=== PATIENT | male | born 1970 | race Caucasian/White ===

== ENCOUNTER 2025-02-23 21:09 | Inpatient (IN) | payer BC, SELFPAY ==
[2025-02-23 16:06] VITALS: BP 129/70
[2025-02-23 16:17] LABS: Hematocrit 27.8 % (39.0-52.0); Hemoglobin 9.7 g/dL (13.0-18.0); Mean Corp Hgb Conc. 34.9 g/dL (33.0-37.0); Mean Corpuscular Volume 85.5 fL (80.0-94.0); Nucleated Red Blood Cells % 0 % (-); Platelet Count 142 10^3/uL (130-400); Red Cell Dist. Width 13.2 % (11.5-14.5)
[2025-02-23 16:37] LABS: ALT (SGPT) 20 U/L (0-50); AST (SGOT) 25 U/L (17-59); Albumin 3.9 g/dl (3.5-5.0); Alkaline Phosphatase 64 U/L (38-126); Blood Urea Nitrogen 28 mg/dl (9-20); Calcium 9.3 mg/dl (8.4-10.2); Carbon Dioxide 25 mmol/L (22-30); Chloride 109 mmol/L (98-107); Glucose 243 mg/dl (70-99); Potassium 4.4 mmol/L (3.5-5.1); Sodium 138 mmol/L (135-145); Total Protein 7.2 g/dl (6.3-8.2); eGFR > 60.00
--- NOTE | 2025-02-23 19:52 | ED.GENMED ---
History of Present Illness
General
Chief Complaint: Skin Problem
Source: patient, records and physician
Exam Limitations: none
Time Seen by Provider: 02/23/25 19:43
Nursing documentation reviewed up to this point in time: agreed with
History of Present Illness
History of Present Illness:
54-year-old female long-term independent diabetic wound on the base of his right foot chronic but also acute component malodorous had MRI in outpatient setting revealed osteomyelitis his automatic data processing planner Dr. Gomez referred him here for evaluation medical
management with plan for admission for OR tomorrow patient is had no fever no nausea vomiting, patient states had some swelling in his right leg,
Past History
Past History
ED Past Medical History: Asthma, IDDM and NIDDM
ED Past Surgical History: Orthopedic
Social History
Tobacco: Former smoker
Alcohol: Occasional
Drug: None
Personal:
Living: with family
Employment: Employed
Family History
Family History: Other
Review of Systems
Review of Systems
All Other Systems: Not applicable
Constitutional: Denies fever or fatigue
EENT: Reports no symptoms
Respiratory: Reports no symptoms
Cardiac: Reports no symptoms
ABD/GI: Reports no symptoms
: Reports no symptoms
Musculoskeletal: Reports muscle stiffness and edema
Neurological: Reports no symptoms
Endocrine: Reports no symptoms
Phy Exam
Physical Exam
Physical Exam:
Physical Exam
General: no apparent distress, not acutely ill
Neck: No jaundice
Heart: s1/s2 regular rate and rhythm, no murmur. equal radial pulses.
Lungs: no acute respiratory distress. clear bilaterally
Abdomen: Nontender
Neuro: alert and oriented. no focal neurological deficits
Skin: no rash
Psychiatric: well kept. interactive and cooperative
Extremities: Mild calf swelling on the right without cellulitic changes, malodorous half dollar size wound plantar surface of the right foot
Course
Orders/Labs/Results
Orders:
Orders
02/23/25 16:11
Complete Blood Count/With Diff Urgent
Comprehensive Metabolic Panel Urgent
02/23/25 19:54
US Periph Venous LOWER Ext RT Urgent
Comment:
Reason For Exam: Swelling
Abnormal Lab Results
02/23/25
16:11
RBC 3.25 L 10^6/uL
(4.70-6.10)
Hgb 9.7 L g/dL
(13.0-18.0)
Hct 27.8 L %
(39.0-52.0)
Absolute Neuts (auto) 6.6 H 10^3/uL
(1.4-6.5)
Absolute Monos (auto) 1.0 H 10^3/uL
(0.1-0.6)
Lymphocytes % 18.8 L %
(20.5-51.1)
Monocytes % 10.4 H %
(1.7-9.3)
Chloride 109 H mmol/L
(98-107)
BUN 28 H mg/dl
(9-20)
Glucose 243 H mg/dl
(70-99)
02/23/25 16:11
02/23/25 16:11
Vital Signs
Initial and Last Documented VS:
Initial Vital Signs
Temp Pulse Resp BP Pulse Ox
98.2 F 75 18 129/70 98
02/23/25 16:06 02/23/25 16:06 02/23/25 16:06 02/23/25 16:06 02/23/25 16:06
Last Documented Vital Signs
Temp Pulse Resp BP Pulse Ox
98.2 F 75 18 129/70 98
02/23/25 16:06 02/23/25 16:06 02/23/25 16:06 02/23/25 16:06 02/23/25 19:54
MDM/Problems Addressed
Differential Diagnosis Includes:
Osteomyelitis cellulitis DVT PVD
MDM/Problems Addressed:
Foot wound
Chronic conditions affecting care: DM
Acute Exacerbation and/or Progression of Chronic Illness: DM
*Radiology
Radiology exam reviewed: other (Report overtextof osteomyelitis from referring automatic data processing planner)
*Pulse Oximetry
SaO2: 98
Oxygen Mode of Delivery: Room air
Patient hypoxic: no
*Critical Care Note
Total Time (30-74mins, 75-104mins- exclusive of procedures): Not Applicable
Update Note
Update Note:
Reviewed with referring automatic data processing planner will admit to the medical team, hold antibiotics as he is stable without signs of sepsis or rapidly progressive wound
Patient does state he has some right lower extremity swelling will check venous Doppler
ED Attending Note
-
Portions of this chart may have been created with voice recognition software.� Occasional wrong word or��sound alike� substitutions may have occurred due to the inherent limitations of voice recognition software.
Discharge Plan
Departure
Patient Disposition: Admit
Date of Disposition: 02/23/25
Time of Disposition: 19:58
Admit to: Med/Surg
Presentation/result/management discussed w/ accepting MD/DO: Hospitalist
Patient with high blood pressure during this ER visit?: No
Condition: Fair
Discharge Problem:
Osteomyelitis, Diabetic foot infection, Cellulitis
Prescriptions:
No Action
albuterol sulfate 1 PUFF HFA aerosol inhaler
2 puff inhalation R Q4HPRN PRN (Reason: shortness of breath)
escitalopram oxalate 10 MG tablet
10 mg PO DAILY
ascorbic acid (vitamin C) [Vitamin C] 500 MG tablet
500 mg PO DAILY
omeprazole 20 MG capsule,delayed release(DR/EC)
20 mg PO DAILY
multivitamin with folic acid [Tab-A-Analy] 1 TABLET tablet
1 tab PO DAILY
psyllium husk [Metamucil] 0.4 GM capsule
0.8 gm PO DAILY
montelukast 10 MG tablet
10 mg PO DAILY
budesonide-formoterol [Symbicort] 1 PUFF HFA aerosol inhaler
2 puff inhalation R BID
ibuprofen 200 MG tablet
800 mg PO Q4HPRN PRN (Reason: mild pain)
insulin glargine [Lantus Solostar U-100 Insulin] 300 UNITS/3 ML insulin pen
48 units SC HS
insulin aspart U-100 [Novolog FlexPen U-100 Insulin] 300 UNITS/3 ML insulin pen
0 units SC MEALS
levofloxacin 750 MG tablet
750 mg PO DAILY Qty: 15 0RF
doxycycline hyclate 100 MG capsule
100 mg PO Q12 Qty: 30 0RF
Interventions
Interventions:
*Risk Screen - Suicide Last Done: 02/23/25 16:07
*General Assessment Last Done: 02/23/25 16:07
*Neglect/Abuse Screening Last Done: 02/23/25 16:07
ED-Skin Assessment Last Done: 02/23/25 19:06
Discharge Date and Time
Print Language: NIGERIEN
--- NOTE | 2025-02-23 20:00 | W.PN.UPDATE ---
Update Note
Progress Note Update
This note serves as an addendum to the H&P by stock grader YOLANDA Lavinia GLOVER
HPI
54F Diabetic , Asthma, HX chronic wound on the base of right foot pw acute component malodorous wound
- OP MRI irevealed osteomyelitis
- some swelling in his right leg,
- Primary hair or beauty salon assistant Dr. Gomez referred to ER evaluation medical management with plan for admission for OR tomorrow
- no fever no nausea vomiting,
PHX
Vital Signs
Temp Pulse Resp BP Pulse Ox
98.2 F 75 18 129/70 98
02/23/25 16:06 02/23/25 16:06 02/23/25 16:06 02/23/25 16:06 02/23/25 19:54
PE
Gen: NAD, not toxic
HEENT: anicteric
Neck: supple
Lungs:CTA
Cor:RRR S1 S2
Abdomen: benign exam
API DEVELOPER: AAO3, NFND
Ext: Rt calf mild swelling. Malodorous half dollar size wound plantar surface of the Rt. foot
Psych: appropriate
Relevant data
02/23/25
16:11
WBC 9.6
Hgb 9.7 L
Plt Count 142
Chloride 109 H
Carbon Dioxide 25
BUN 28 H
Creatinine 1.2
eGFR > 60.00
Glucose 243 H
ASSESSMENT & PLAN
Pending Rx reconciliation
Diabetic neuropathic Rt foot ulcers ( 1 chronic 1 acute )
OSH MRI i( [facility]) suggest OM of heads of 3rd and 5th MTH
- sent in by Primary podiatry surgeon Dr. Gomez
- on [employer] SAL[employer] ASSOCIATE PO Doxycycline and PO LVQ
- NPO after MN
- Hold of ABx for now in view of stable VSS
- Plan for OR afternoon per Lay Midwife surgeon
- ID consult
IDDM with peripheral neuropathy
- add ISS low
- Reduce Lantus 50% of [employer] SALES ASSOCIATE dose in view of NPO after MN
- add ISS low
HX Asthma
- c/w all OP Meds
Depression
- on escitalopram
DVT Px: SQH
Full code
IP MS
--- NOTE | 2025-02-23 20:02 | HPS.HSE ---
Family Physician
-
Family Physician:
Chief Complaint
-
Right plantar foot wound x 1 year, right fifth metatarsal wound x 1.5 weeks
History of Present Illness
54-year-old diabetic male complaining of a diabetic wound on the base of his right foot that has been chronic but also acute with malodorous smell. He had an outpatient MRI completed at [facility] which showed osteomyelitis of the fifth
metatarsal and third metatarsal heads. He was seen by his highway maintainer Dr. Gomez who referred him here for evaluation and management with plan for OR in the a.m. He does report some swelling to his right lower extremity he denies fever, chills,
chest pain, palpitations, cough, shortness of breath, abdominal pain, nausea, vomiting, diarrhea, urinary symptoms. He has past medical history of asthma, DM 2 Dx age 29, severe diabetic neuropathy from feet to knees, diabetic retinopathy,
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
Medical History
Past Medical History
Past Medical History: Reports Other
Additional Past Medical History:
asthma�mild
DM 2 Dx age 29
severe diabetic neuropathy from feet to knees
diabetic retinopathy
osteomyelitis left foot with removal fifth metatarsal
born with horseshoe kidney
former smoker,
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
class I obesity
Past Surgical History: Reports Other
Additional Past Surgical History:
Left foot fifth metatarsal removal due to osteomyelitis/DM 2
Vasectomy
Appendectomy
Social History
Tobacco: Former Smoker (1 to 2 pack a day x 30 years quit 3 years ago)
Alcohol: Occasional (Drinks 4 beers a week was drinking daily 15 beers a day x 15 years until September 03, 2024)
Drug: None
Personal:
Living: Alone
Employment: Employed
Family History
Family History: Not pertinent
Allergies / Home Medications
Allergies reflects when Allergies were last updated in [facility].
Home Medications with original date entered in [facility]
Allergy/Medication List:
Allergies
Allergy/AdvReac Type Severity Reaction Status Date / Time
No Known Allergies Allergy Verified 02/23/25 16:07
Home Medications
albuterol sulfate 90 mcg/actuation aerosol inhaler 2 puff inhalation R Q4HPRN PRN shortness of breath 12/28/17
montelukast 10 mg tablet 10 mg PO DAILY Allergies 03/17/21
insulin aspart U-100 100 unit/mL (3 mL) subcutaneous pen (Novolog FlexPen U-100 Insulin aspart) 10 - 15 units SC MEALS sliding scale 06/08/21
insulin glargine 100 unit/mL (3 mL) subcutaneous pen (Lantus Solostar U-100 Insulin) 45 units SC HS Diabetes 06/08/21
citalopram 40 mg tablet 40 mg PO DAILY 02/23/25
fenofibrate 48 mg PO DAILY 02/23/25
lisinopril 30 mg PO DAILY 02/23/25
Review of Systems
-
History Source: Patient
A 12 point ROS was completed and negative except as noted: Yes
Constitutional: Denies Fever or Fatigue
EENT: Denies Sore Throat or Runny Nose
Respiratory: Denies Cough or Trouble Breathing
Cardiac: Denies Chest Pain, Diaphoresis, Palpitations or Syncope
Abdomen/GI: Denies Abdominal Pain, Nausea, Vomiting, Diarrhea, Constipated or Bloody Stools
: Denies Dysuria, Frequency, Flank Pain, Incontinence or Difficulty Voiding
Musculoskeletal: Reports Joint Pain (Right lateral fifth metatarsal open wound, chronic open wound plantar aspect of foot below third metatarsal, swelling to right lower extremity with erythema)
Skin: Denies Itching or Rash
Neurological: Denies Dizzy, Headache or Weakness
Endocrine: Reports No Symptoms
Hematologic/Lymphatic: Reports No Symptoms
Psych: Reports Calm
Physical Exam
Vital Signs
Vital Signs
Temp Pulse Resp BP Pulse Ox
98.2 F 75 18 129/70 98
02/23/25 16:06 02/23/25 16:06 02/23/25 16:06 02/23/25 16:06 02/23/25 19:54
Physical Exam
General: Comfortable and Conversant; No Fever or Chills
HEENT: NormoCephalic, Anicteric, Moist mucous membranes, PERRLA, Eckley Conjunctivae and No Ptosis
Respiratory: Clear; No Wheezes, Rales or Rhonchi
Cardiac: S1/S2 and Regular Rhythm; No Murmur, Rub, Gallop or Peripheral Edema
GI: Soft, Non Distended, Normal Bowel Sounds and No Hepatosplenomegaly
Rectal: Deferred by Provider
Genito-urinary: Deferred by me
Musculoskeletal: No Clubbing, No Cyanosis and Edema, Right Lower Extremity (Right lateral fifth metatarsal open wound, chronic open wound plantar aspect of foot below third metatarsal, swelling to right lower extremity with erythema); No Edema, Left
Upper Extremity, Edema, Right Upper Extremity or Edema, Left Lower Extremity
Skin: Warm and Dry; No Rash
Neuro: AO x 3, No Motor Deficits, Nonfocal/grossly intact, Cranial Nerves Intact and No Sensory Deficits; No DTR's Intact & Symmetrical, Slurred Speech, Facial Droop, Tremors or Sedated
Psych: Calm
Laboratory Results
-
02/23/25 16:11
02/23/25 16:11
Laboratory Results
Total Bilirubin 0.6 mg/dl (0.2-1.3) 02/23/25 16:11
AST 25 U/L (17-59) 02/23/25 16:11
ALT 20 U/L (0-50) 02/23/25 16:11
Alkaline Phosphatase 64 U/L (38-126) 02/23/25 16:11
Impression/Plan
-
Impression/plan:
Admit to MedSurg
#Right foot osteomyelitis 3rd/5th metatarsal heads/open hold to right plantar foot below third metatarsal x 1 year
#Right leg cellulitis
-#s/p amputation left fifth metatarsal due to osteomyelitis
- Obtain MRI from [facility]
- N.p.o. for OR in the a.m. by Dr. Gomez podiatry
-consult podiatry
-Hold antibiotics for biopsy in OR
- Consult PT/OT
#Anemia�normocytic
Hgb 9.7, MCV 85.5
Check iron panel, B12, folate
#Asthma�mild-no acute exacerbation
Continue Singulair and albuterol as needed
#DM 2 Dx age 29
#Severe diabetic neuropathy from feet to knees
-Accu-Cheks with SSI HIGH, check HgbA1c
- Continue Lantus 23 units at bedtime(regular dose 45 units at bedtime)
-Patient typically takes 10 to 15 units of NovoLog with meals will have sliding scale high for now
-
#Diabetic retinopathy
Wears glasses does follow yearly with high lighter
#Born with horseshoe kidney
-Advised patient he should follow with nephrology given his uncontrolled blood sugars
- Follow BMP
#Former smoker
- 29-year 1 to 2 pack/day quit 8 years ago
#Former alcoholic 15 years daily 15 pack stopped September 03, 2024
#Class I obesity
- Weight loss recommended discussed with patient GLP-1's but not until LFTs and outpatient liver ultrasound given his history of alcoholism
DVT prophylaxis
SCDs left leg
Full code
[2025-02-23 20:18] VITALS: BP 128/74
[2025-02-23 21:34] LABS: Iron 53 ug/dl (49-181); Total Iron Binding Capacity 274 ug/dl (261-462)
[2025-02-23 21:40] LABS: Ferritin 296.0 ng/ml (17.9-464.0)
[2025-02-23 22:11] LABS: Folate 9.4 ng/ml (2.76-20); Vitamin B12 292 pg/ml (239-931)
[2025-02-23 22:26] VITALS: BMI 31.9
[2025-02-23 22:27] VITALS: BP 167/86
--- NOTE | 2025-02-23 23:40 | PTCARENOTE ---
Received patient from ED at approx 2225. Patient ambulated from stretcher to bed. AAA x 3. Call rubio in reach.
[2025-02-23 23:57] LABS: Glucose - Point of Care 324 mg/dl (70-99)
[2025-02-24] VITALS (9 sets, daily range): BP systolic 104–153; BP diastolic 61–80
[2025-02-24] MEDS: LANTUS 0.24 UNITS SC ×2 (00:27→21:53)
[2025-02-24 05:59] LABS: Glucose - Point of Care 218 mg/dl (70-99)
[2025-02-24] MEDS: NOVOLOG FLEXPEN-HIGH RESISTANCE 4 UNITS SC (06:03)
--- NOTE | 2025-02-24 07:27 | W.PN.UPDATE ---
Update Note
Progress Note Update
pt seen, well known to practice
has mri, osteo 5th met head and 3rd met heaad
keep npo for OR later;
consent signed
will debride ulcers/5th met resection and bx of 3rd
anticipate 6 weeks iv abx upon dc
will also need wound vac ( most likely) upon dc
sx later today
full consult to be dictated
--- NOTE | 2025-02-24 07:33 | W.PN.HOSP.TC ---
Today's Communication/Plan
-
Debridement/resection of metatarsals in OR
Start antibiotics
Assessment / Plan
Assessment / Plan
Assessment
54-year-old male with past medical history of IDDM, diabetic neuropathy/retinopathy, horseshoe kidney, asthma, former smoker and alcoholic presented to the ER with chronic right foot ulcers.
Plan
#Diabetic foot ulcers
#Osteomyelitis right 3rd/5th metatarsals
Technical Manager [employer] on board
Plan for debridement, metatarsal resection and biopsy in the OR today.
Patient not septic at presentation
Will start IV Zosyn and vancomycin after the procedure
Will de-escalate after cultures/sensitivities reported
N.p.o. for the procedure
May need wound VAC/IV antibiotics at discharge
#IDDM
#Diabetic neuropathy
#Diabetic retinopathy
Patient on home Lantus 45, aspart 10/15 units
Since patient is n.p.o., Lantus reduced to 24
Continue SSI
Check HbA1c
#Asthma
Not in acute exacerbation
Continue Singulair
Continue albuterol as needed
#Horseshoe kidney
Follow-up with nephrology as outpatient
Check BMP
#DVT prophylaxis�SCDs
Full code
Anticipated Discharge: 24 - 48 hours
Subjective/Interval History
-
Date of Service: February 24, 2025
Patient does not report any acute overnight events, no fever/chills.
Objective Data
-
Labs:
Laboratory Results
02/24/25
07:08
WBC Pending
Hgb Pending
Hct Pending
Plt Count Pending
Sodium Pending
Potassium Pending
Chloride Pending
Carbon Dioxide Pending
BUN Pending
Creatinine Pending
Glucose Pending
Calcium Pending
Total Bilirubin Pending
AST Pending
ALT Pending
Alkaline Phosphatase Pending
Vital Signs:
Vital Signs
Temp Pulse Resp BP Pulse Ox
98.4 F 56 16 127/78 98
02/23/25 22:27 02/24/25 03:20 02/24/25 00:23 02/24/25 03:20 02/24/25 00:23
I&O
02/23/25 02/24/25 02/25/25
06:59 06:59 06:59
Intake Total 240 / 240
Balance 240 / 240
Review of Systems
-
All other systems: Reviewed and negative
Physical Exam
-
General: Well Developed, Well Nourished and No Apparent Distress
HEENT: Normocephalic and Atraumatic
Respiratory: Clear to Auscultation
Cardiac: Regular Rhythm and S1/S2
GI: Soft, Nontender, Nondistended and Normal Bowel Sounds
Skin: Warm, Dry and Ulcers (Ulcer on the lateral aspect of right foot, 3X 3 cm, ulcer on the plantar aspect of the right foot 1X 2 cm)
Neuro: Awake, Alert, Oriented and AO x 3
[2025-02-24 07:41] LABS: Hematocrit 30.7 % (39.0-52.0); Hemoglobin 10.3 g/dL (13.0-18.0); Mean Corp Hgb Conc. 33.6 g/dL (33.0-37.0); Mean Corpuscular Volume 87.0 fL (80.0-94.0); Nucleated Red Blood Cells % 0 % (-); Platelet Count 171 10^3/uL (130-400); Red Cell Dist. Width 13.2 % (11.5-14.5)
[2025-02-24 08:09] LABS: ALT (SGPT) 21 U/L (0-50); AST (SGOT) 23 U/L (17-59); Albumin 4.0 g/dl (3.5-5.0); Alkaline Phosphatase 61 U/L (38-126); Blood Urea Nitrogen 22 mg/dl (9-20); Calcium 9.4 mg/dl (8.4-10.2); Carbon Dioxide 27 mmol/L (22-30); Chloride 106 mmol/L (98-107); Estimated Creatinine Clearance 124 ml/min; Glucose 173 mg/dl (70-99); Magnesium 2.0 mg/dl (1.6-2.3); Potassium 4.1 mmol/L (3.5-5.1); Sodium 139 mmol/L (135-145); Total Protein 7.5 g/dl (6.3-8.2); eGFR > 60.00
[2025-02-24 08:58] LABS: Glycohemoglobin (HgbA1c) 7.9 % (4.0-5.6)
[2025-02-24] MEDS: ZESTRIL 30 MG PO (09:22)
[2025-02-24] MEDS: CELEXA 40 MG PO (09:22)
[2025-02-24] MEDS: TRICOR 48 MG PO (09:23)
[2025-02-24] MEDS: SINGULAIR 10 MG PO (09:30)
--- NOTE | 2025-02-24 11:34 | CON.ID ---
Consultation
-
Date/Time Consultation Requested: February 24, 2025 0834
Date/Time Consultation Performed: 02/24/2025 1000
Requesting Provider: Dr. Veronica V
Performing Provider: Dr. Radha Oviedo
Reason for Consultation: Diabetic foot infection
Chief Complaint / Past History
Chief Complaint
Worsening R foot wounds
History of Present Illness
54-year-old male with history of uncontrolled diabetes mellitus, neuropathy who presented to the hospital February 23 under the instruction of his siebel developer due to osteomyelitis of the R foot. He reports he has chronic wound on the bottom of his
plantar foot. However 2 weeks ago he developed a new wound over the lateral side of right foot. Wound was nonhealing. It turned dark in color with odor. His siebel developer ordered MRI; outside MRI showed osteomyelitis of the fifth metatarsal as well
as the third metatarsal. He is planned for surgery today. Patient reports no fevers or chills. No other complaints.
Past History
Additional Past Medical History:
Diabetes mellitus
Neuropathy
Asthma
Hypertension
HLD
depression
Horseshoe kidney
History of left fifth metatarsal resection due to osteomyelitis
Appendectomy
Vasectomy
Allergy History:
No Known Allergies Allergy (Verified 02/23/25 16:07)
Medications Reviewed: Yes
Current Antibiotics:
None
Social History
Tobacco: Former Smoker
Alcohol: Former
Drug: None
Personal:
Employment: Employed
Family History
Family History: Not Pertinent
Review of Systems
Review of Systems
General: Negative Fever, Chills or Change in Appetite
HEENT: Negative Sinus Problems or Headache
Cardiovascular: Negative Chest Pain
Respiratory: Negative Dyspnea or Cough
Gasteroenterology: Negative Nausea, Vomiting or Diarrhea
Genital / Urological: Negative Dysuria or Flank Pain
Endocrine: Negative Weakness
All systems: All other systems were reviewed and were negative
Vital Signs
Temp Pulse Resp BP Pulse Ox
98.2 F 77 16 149/80 99
02/24/25 08:39 02/24/25 08:39 02/24/25 08:39 02/24/25 08:39 02/24/25 08:39
Physical Exam
Physical Exam
Constitutional: No Acute Distress and Comfortable
Eyes: No Conjunctival Hemorrhage and Sclera Anicteric
Cardiovascular: Regular Rate and S1/S2
Pulmonary: Clear
Gastrointestinal: Soft, Non Tender, Non Distended and Normal Bowel Sounds
Genito-Urinary: Negative CVA Tenderness
Extremities: Edema (Right lower extremity and foot/warm) and Pulses (Palpable pulses bilateral dorsal pedalis)
Wound: Other (Right foot: Round ulcer plantar forefoot between 3rd and 4th metatarsal with pale tissue at the base; fifth metatarsal is soft necrotic wound with malodor)
Neurological: AO x 3
Lab / Diagnostic Study Results
02/24/25 07:08
02/24/25 07:08
Abs Immat Gran (auto) 0.0 10^3/uL (0-0.05) 02/24/25 07:08
Absolute Neuts (auto) 5.8 10^3/uL (1.4-6.5) 02/24/25 07:08
Absolute Lymphs (auto) 1.5 10^3/uL (1.2-3.4) 02/24/25 07:08
Absolute Monos (auto) 0.9 10^3/uL (0.1-0.6) H 02/24/25 07:08
Absolute Basos (auto) 0.0 10^3/uL (0-0.2) 02/24/25 07:08
Immature Gran % 0.4 % (0-0.5) 02/24/25 07:08
Neutrophils % 69.4 % (42.2-75.2) 02/24/25 07:08
Lymphocytes % 17.8 % (20.5-51.1) L 02/24/25 07:08
Monocytes % 10.2 % (1.7-9.3) H 02/24/25 07:08
Eosinophils % 1.8 % (0-6) 02/24/25 07:08
Basophils % 0.4 % (0-2) 02/24/25 07:08
Microbiology Results
Micro:
02/24/25 03:48 MRSA Screen - Pending
Other-Please specify - Other
02/2525 Foot Xray: linear collection of gas gas projecting over soft tissues of plantar aspect of distal forefoot. This presumably represents gas within patient's known foot ulcers.
Assessment / Plan
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
# Osteomyelitis of the right third metatarsal
# Poorly controlled diabetes mellitus
- To OR today for I&D, resection, cultures, pathology
- Start Zosyn
- Will de-escalate antibiotic once or cultures available. Anticipate 6 weeks of IV antibiotic.
- Discussed importance of tight glucose control.
[2025-02-24 11:58] LABS: Glucose - Point of Care 130 mg/dl (70-99)
--- NOTE | 2025-02-24 12:27 | CM ---
CM reviewed chart, patient seen bedside, initial assessment completed. Patient resides with his significant other in a one level home, 2-3 steps to enter. Patient reports having a commode, walker, scooter, 'peg leg', and wheelchair at home. Patient
reports having VN in the past, has had home IV antibiotics. unsure agency. Patient denies SNF history. Patient confirms PCP Carmen Agee, pharmacy [facility], confirms prescription coverage. Patient reports anxiety over the unknown regarding
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 Patient for OR today, will follow for all discharge planning needs.
Plan; home with fiance, watch for needs upon discharge (may need wound vac per chart)
[2025-02-24] MEDS: ZOSYN 100 IV (14:09)
[2025-02-24 18:10] LABS: Glucose - Point of Care 100 mg/dl (70-99)
--- NOTE | 2025-02-24 20:25 | W.PN.UPDATE ---
Update Note
Progress Note Update
pt seen in RR
no pain
dressing cdi
cft intact
a/p s/p 5th mpj resection, 3rd met bone bx
excisional debridement of ulcer right---stable
bone sent to path, if 3rd met + osteo, need 6 weeks abx
pt will need wound vac placement, possible tomorrow, pending bleeding
will follow
cont abx
[2025-02-24 20:27] LABS: Glucose - Point of Care 106 mg/dl (70-99)
[2025-02-24] MEDS: ZOSYN IV (20:41)
[2025-02-24 21:46] LABS: Glucose - Point of Care 107 mg/dl (70-99)
--- NOTE | 2025-02-24 23:17 | PTCARENOTE ---
Patient arrived back to unit from PACU around 21:00. AAOx3. Denies pain at current time. Vitals stable. Right foot wrapped with dressing and archie wrap. patient able to wiggle toes and feel RN toughing toes. RLE warm with + cap refill. Pop pulse + .
Patient educated senior national account manager ing fro assist with toileting and given urinal. Call rubio within reach.
[2025-02-25] VITALS (8 sets, daily range): BP systolic 113–161; BP diastolic 64–83; PULSE 93; O2SAT 96
[2025-02-25] MEDS: ZOSYN 100 IV ×4 (01:18→19:50)
--- NOTE | 2025-02-25 07:08 | W.PN.HOSP.TC ---
Today's Communication/Plan
-
Continue IV Zosyn
Wound VAC
Assessment / Plan
Assessment / Plan
Assessment
54-year-old male with past medical history of IDDM, diabetic neuropathy/retinopathy, horseshoe kidney, asthma, former smoker and alcoholic presented to the ER with chronic right foot ulcers.
Plan
#Diabetic foot ulcers
#Osteomyelitis right 3rd/5th metatarsals
#S/p right fifth MP joint resection/ excisional debridement/third metatarsal biopsy
POD #1
AFVSS
White count at 12.5
Continue IV Zosyn
Wound cultures/sensitivities pending, will de-escalate after reported
Wound VAC today
Third metatarsal biopsy sent, if osteo myelitis +, may require IV antibiotics for 6 weeks
ID on board�appreciate recs, IV antibiotics at discharge
Nonweightbearing right foot
Possible discharge tomorrow
#IDDM
#Diabetic neuropathy
#Diabetic retinopathy
Patient on carb controlled diet
Lantus 30, aspart 10
Continue SSI
[id number]-5.9
#Asthma
Not in acute exacerbation
Continue Singulair
Continue albuterol as needed
#Horseshoe kidney
Follow-up with nephrology as outpatient
Check BMP
#DVT prophylaxis�Lovenox
Full code
Anticipated Discharge: 24 - 48 hours
Subjective/Interval History
-
Date of Service: February 25, 2025
No acute overnight issues.
Objective Data
-
Labs:
Laboratory Results
02/25/25
06:00
WBC Pending
Hgb Pending
Hct Pending
Plt Count Pending
Sodium Pending
Potassium Pending
Chloride Pending
Carbon Dioxide Pending
BUN Pending
Creatinine Pending
Glucose Pending
Calcium Pending
Total Bilirubin Pending
AST Pending
ALT Pending
Alkaline Phosphatase Pending
Vital Signs:
Vital Signs
Temp Pulse Resp BP Pulse Ox
99.2 F 83 18 143/68 96
02/25/25 03:00 02/25/25 03:00 02/25/25 03:00 02/25/25 03:00 02/25/25 03:00
I&O
02/24/25 02/25/25 02/26/25
06:59 06:59 06:59
Intake Total 240 / 240 680 / 680
Balance 240 / 240 680 / 680
Physical Exam
-
General: Well Developed, Well Nourished and No Apparent Distress
HEENT: Normocephalic and Atraumatic
Respiratory: Clear to Auscultation
Cardiac: Regular Rhythm and S1/S2
GI: Soft, Nontender, Nondistended and Normal Bowel Sounds
Musculoskeletal: Other (Right foot covered with dressing and Dash wrap, neurovasculature intact, appears well-perfused)
Skin: Warm and Dry
Neuro: Awake, Alert, Oriented and AO x 3
Psych: Calm
--- NOTE | 2025-02-25 07:25 | W.PN.POD ---
Today's Communication
Today's Communication
s/p 5th mpj resection right foot/excisional debridememt to bone right foot/3rd met bx---stable
no acute soi
tissue healthy
will order vac for today
pt will need betadine impregnated gauze on sutures prior to application of vac, this is done to decrease maceration
vac should be placed lateral wound, bactroban to plantar wound
pt will most likely need iv abx upon dc
will need vna
anticipate dc per pod tomorrow pending C&S
nwb right foot
Subjective
Chief Complaint
pt seen for fu surgery
no pain
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
dressing cdi
Subjective
vasc intact
derm lateral foot with large wound, clean, no odor, no pus
granular tissue
sutures intact
plantar wound stable, superficial, granular
no acute soi
path and VV&S pending
Objective
Temp Pulse Resp BP Pulse Ox
99.2 F 83 18 143/68 96
02/25/25 03:00 02/25/25 03:00 02/25/25 03:00 02/25/25 03:00 02/25/25 03:00
Vital Signs and Lab results were reviewed.
[2025-02-25 08:19] LABS: Hematocrit 32.8 % (39.0-52.0); Hemoglobin 11.5 g/dL (13.0-18.0); Mean Corp Hgb Conc. 35.1 g/dL (33.0-37.0); Mean Corpuscular Volume 83.9 fL (80.0-94.0); Nucleated Red Blood Cells % 0 % (-); Platelet Count 189 10^3/uL (130-400); Red Cell Dist. Width 12.7 % (11.5-14.5)
[2025-02-25 09:02] LABS: ALT (SGPT) 21 U/L (0-50); AST (SGOT) 25 U/L (17-59); Albumin 4.2 g/dl (3.5-5.0); Alkaline Phosphatase 77 U/L (38-126); Blood Urea Nitrogen 20 mg/dl (9-20); Calcium 9.5 mg/dl (8.4-10.2); Carbon Dioxide 23 mmol/L (22-30); Chloride 106 mmol/L (98-107); Estimated Creatinine Clearance 111 ml/min; Glucose 164 mg/dl (70-99); Potassium 4.7 mmol/L (3.5-5.1); Sodium 137 mmol/L (135-145); Total Protein 7.8 g/dl (6.3-8.2); eGFR > 60.00
[2025-02-25] MEDS: ZESTRIL 30 MG PO (09:02)
[2025-02-25] MEDS: CELEXA 40 MG PO (09:02)
[2025-02-25] MEDS: SINGULAIR 10 MG PO (09:02)
[2025-02-25] MEDS: TRICOR 48 MG PO (09:03)
[2025-02-25 09:07] LABS: Glucose - Point of Care 141 mg/dl (70-99)
--- NOTE | 2025-02-25 10:38 | WOUNDNOTE ---
RIGHT PLANTAR FOOT
--- NOTE | 2025-02-25 10:41 | WOUNDNOTE ---
RIGHT LATERAL FOOT
--- NOTE | 2025-02-25 10:45 | WOUNDNOTE ---
[facility] RN note: Patient admitted with R diabetic foot infection and osteomyelitis.
See H&P for complete history.
PMH: ED Past Medical History: Asthma, IDDM and NIDDM
ED Past Surgical History: Orthopedic
Wound Location and type/assessment: Patient s/p R foot surgical I&D by Dr. Gomez wound vac ordered. Clarified wound orders with Dr. Gomez, vac to lateral aspect of foot, cover sutures with betadine and gauze to keep dry. Plantar foot with mupirocin
and dry dressing daily. Will update wound care orders and Fax PW to [facility] for home vac. For possible discharge tomorrow pending insurance approval of vac. Will update Solvent site of vac application, can use redivac available in wound office
when ready for discharge. Teaching done with patient regarding wound vac and dressing on plantar aspect. Patient confirmed his fiance can change plantar dressing daily, aware VN will do wound vac dressings. L foot and heel are intact. R heel intact.
Appetite: Good, encouraged protein in diet.
Pressure redistribution devices in place: On accumax, turns self and lifts legs, NWB R foot. Has darco shoe and confirmed has scooter at home.
Plan: Wound care done, vac applied as ordered by Dr. Gomez. Next vac change due Sunday and will change if still here. When discharged wound care nurse(Nan Thomas) can apply home vac and do further teaching with patient and fiance. Can
coordinate with Nan when discharge set. Updated care plan.
Note to case management of equipment requested for discharge: VN
Recommend follow up with Dr. Gomez.
--- NOTE | 2025-02-25 10:55 | W.PN.ID1 ---
Date of Service
Date of Service: February 25, 2025
Today's Communication
Await bone path.
Continue Zosyn.
Assessment / Plan
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
# Osteomyelitis of the right third metatarsal
# Poorly controlled diabetes mellitus
- 02/25 s/p 5th mpj resection, 3rd met bone bx, excisional debridement of ulcer right
- Await OR cx's and biopsy.
- If 3rd met bone bx + osteo, will need 6 weeks of IV abx.
- Continue Zosyn (d2) for now.
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
Diabetes mellitus
Neuropathy
Asthma
Hypertension
HLD
depression
Horseshoe kidney
History of left fifth metatarsal resection due to osteomyelitis
Appendectomy
Vasectomy
Chief Complaint
-: Other (foot osteo)
Subjective / Review of Systems
No pain.
Vital Signs / Physical Exam
Vital Signs
Vital Signs
Temp Pulse Resp BP Pulse Ox
99.2 F 95 17 161/82 96
02/25/25 07:25 02/25/25 07:25 02/25/25 07:25 02/25/25 07:25 02/25/25 07:25
Physical Exam
Constitutional: No Acute Distress
Cardiovascular: Regular Rate and S1/S2
Pulmonary: Clear
Gastrointestinal: Soft, Non Tender and Non Distended
Wound: Other (right foot dressing in place)
Neurological: AO x 3
Objective Data
Lab Data
Lab Results
02/25/25 07:43
02/25/25 07:43
Estimated Creat Clear 111 ml/min 02/25/25 07:43
Total Bilirubin 0.7 mg/dl (0.2-1.3) 02/25/25 07:43
AST 25 U/L (17-59) 02/25/25 07:43
ALT 21 U/L (0-50) 02/25/25 07:43
Alkaline Phosphatase 77 U/L (38-126) 02/25/25 07:43
Most recent labs reviewed.
Micro Results:
02/24/25 03:48 MRSA Screen - Final
Other-Please specify - Other No Methicillin Resistant Staphylococcus aureus isolated.
02/24/25 19:51 Anaerobic Culture - Pending
Wound-Superficial
02/24/25 19:51 Wound Culture - Pending
Foot - Right Gram Stain - Pending
02/24/25 19:51 Tissue Culture - Pending
Foot - Right Gram Stain - Pending
02/24/25 20:00 Tissue Culture - Pending
Foot - Right Gram Stain - Pending
02/24/25 20:00 Tissue Culture - Pending
Foot - Right Gram Stain - Pending
02/2525 Foot Xray: linear collection of gas gas projecting over soft tissues of plantar aspect of distal forefoot. This presumably represents gas within patient's known foot ulcers.
[2025-02-25 12:12] LABS: Glucose - Point of Care 264 mg/dl (70-99)
[2025-02-25] MEDS: NOVOLOG FLEXPEN-MODERATE RESISTANCE 5 UNITS SC ×2 (12:55→18:22)
--- NOTE | 2025-02-25 13:11 | CM ---
CM reviewed chart, patient with wound vac, will likely need 6 weeks IV antibiotics. Patient seen bedside with luna, aware of likely need for IV antibiotics, has worked with [facility] in the past. Patient unsure of VN agency worked with in the
past, per previous CM notes, no accepting VN agency at the time upon last discharge. Referral placed to [facility], will check for nursing availability in [facility]. Clinicals sent to [facility] to review patients benefits, patients reports last
time he had home antibiotics he had a different insurance, now current with [facility]. CM will continue to follow for all discharge planning needs.
Plan; home with new wound vac, likely IV antibiotics, referral to [facility], referral to [facility] for home infusion
[2025-02-25 17:05] LABS: Glucose - Point of Care 263 mg/dl (70-99)
[2025-02-25] MEDS: LOVENOX 40 MG SC (18:22)
[2025-02-25 21:16] LABS: Glucose - Point of Care 347 mg/dl (70-99)
[2025-02-25] MEDS: LANTUS 0.3 UNITS SC (21:42)
[2025-02-26] MEDS: ZOSYN 100 IV ×3 (01:30→14:15)
[2025-02-26 07:30] LABS: Glucose - Point of Care 163 mg/dl (70-99)
[2025-02-26 07:36] VITALS: BP 132/68
--- NOTE | 2025-02-26 07:36 | W.PN.HOSP.TC ---
Today's Communication/Plan
-
Continue wound VAC
Continue IV Zosyn
Assessment / Plan
Assessment / Plan
Assessment
54-year-old male with past medical history of IDDM, diabetic neuropathy/retinopathy, horseshoe kidney, asthma, former smoker and alcoholic presented to the ER with chronic right foot ulcers.
Plan
#Diabetic foot ulcers
#Osteomyelitis right 3rd/5th metatarsals
#S/p right fifth MP joint resection/ excisional debridement/third metatarsal biopsy
POD #2
AFVSS
Continue IV Zosyn�day 3
Wound cultures/sensitivities pending, will de-escalate after reported
Wound VAC in place, continue for today, will take off tomorrow
Third metatarsal biopsy sent, if osteo myelitis +, may require IV antibiotics for 6 weeks
ID on board�appreciate recs, IV antibiotics at discharge
Nonweightbearing right foot
Consulted case management, for arranging VN/VAC at home
Possible discharge tomorrow
#IDDM
#Diabetic neuropathy
#Diabetic retinopathy
Patient on carb controlled diet
Continue with home dose 45 Lantus/15 aspart
Continue SSI
[id number]
#Asthma
Not in acute exacerbation
Continue Singulair
Continue albuterol as needed
#Horseshoe kidney
Follow-up with nephrology as outpatient
Check BMP
#DVT prophylaxis�Lovenox
Full code
Anticipated Discharge: 24 - 48 hours
Subjective/Interval History
-
Date of Service: February 26, 2025
Patient does not report any pain.
Objective Data
-
Labs:
Laboratory Results
02/26/25
07:33
WBC Pending
Hgb Pending
Hct Pending
Plt Count Pending
Sodium Pending
Potassium Pending
Chloride Pending
Carbon Dioxide Pending
BUN Pending
Creatinine Pending
Glucose Pending
Calcium Pending
Total Bilirubin Pending
AST Pending
ALT Pending
Alkaline Phosphatase Pending
Vital Signs:
Vital Signs
Temp Pulse Resp BP Pulse Ox
98.4 F 81 20 137/75 97
02/25/25 22:59 02/25/25 22:59 02/25/25 22:59 02/25/25 22:59 02/25/25 22:59
I&O
02/25/25 02/26/25 02/27/25
06:59 06:59 06:59
Intake Total 680 / 680 880 / 880
Balance 680 / 680 880 / 880
Physical Exam
-
General: Well Developed and Well Nourished
HEENT: Normocephalic and Atraumatic
Respiratory: Clear to Auscultation
Cardiac: Regular Rhythm and S1/S2
GI: Soft, Nontender, Nondistended and Normal Bowel Sounds
Musculoskeletal: Other (Right foot covered with dressing and Dash wrap, neurovasculature intact, appears well-perfused)
Skin: Warm and Dry
Neuro: Awake, Alert, Oriented and AO x 3
[2025-02-26 07:46] LABS: Hematocrit 30.7 % (39.0-52.0); Hemoglobin 10.7 g/dL (13.0-18.0); Mean Corp Hgb Conc. 34.9 g/dL (33.0-37.0); Mean Corpuscular Volume 84.6 fL (80.0-94.0); Nucleated Red Blood Cells % 0 % (-); Platelet Count 181 10^3/uL (130-400); Red Cell Dist. Width 12.6 % (11.5-14.5)
--- NOTE | 2025-02-26 08:09 | W.PN.UPDATE ---
Update Note
Progress Note Update
pt seen at bedside
no c/o pain
cft intact to toes
vac in place
cult pending
a/p s/p 5th mpj resection and bone bx ---stable
awaiting cult
pt will need 6 weeks iv abx
will take off vac tomorrow, if healthy tissue..plan to dc tomorrow if vna/vac at home is organized'
appreciate all input, needs vac and abx for home
--- NOTE | 2025-02-26 09:06 | CM ---
Addendum entered by Joi Nicholas 02/26/25 17:20:
[facility] and [facility] home health referrals declined. Attending notified. May need to consider going to a SNF for care if insurance approves authorization
Addendum entered by Joi Nicholas 02/26/25 14:58:
Script for Antibiotic and clinicals faxed to Misty @ [facility]; fax # [phone]
Addendum entered by Joi Nicholas 02/26/25 14:08:
[facility] home health unable to accept patient.
Referrals sent to [facility] and [facility]'s [facility] via [facility]
Addendum entered by Joi Nicholas 02/26/25 10:55:
Met with patient at bedside; informed him of insurance coverage.
Per Infectious Disease physician, culture results to make optimal antibiotic decision is still pending
[facility] responded; decision to accept home referral pending is review of clinical information
Plan: Discharge to home with [facility]N
Addendum entered by Joi Nicholas 02/26/25 09:22:
Per Misty from [facility], patient's insurance covers 100% after $2000 Deductible has been met
Home Health/VN referral sent to [facility]
Original Note:
Home Health referrals to [facility] declined; both out of their service area
[2025-02-26] MEDS: NOVOLOG FLEXPEN-MODERATE RESISTANCE 1 UNITS SC ×2 (09:40→12:51)
[2025-02-26] MEDS: CELEXA 40 MG PO (09:46)
[2025-02-26] MEDS: ZESTRIL 30 MG PO (09:46)
[2025-02-26] MEDS: FLUSH (NSS) 1 FLUSH IV ×2 (09:46→14:13)
[2025-02-26] MEDS: TRICOR 48 MG PO (09:46)
[2025-02-26] MEDS: SINGULAIR 10 MG PO (09:47)
[2025-02-26 10:51] LABS: ALT (SGPT) 18 U/L (0-50); AST (SGOT) 19 U/L (17-59); Albumin 4.0 g/dl (3.5-5.0); Alkaline Phosphatase 61 U/L (38-126); Blood Urea Nitrogen 15 mg/dl (9-20); Calcium 9.3 mg/dl (8.4-10.2); Carbon Dioxide 26 mmol/L (22-30); Chloride 104 mmol/L (98-107); Estimated Creatinine Clearance 101 ml/min; Glucose 154 mg/dl (70-99); Potassium 4.3 mmol/L (3.5-5.1); Sodium 137 mmol/L (135-145); Total Protein 7.6 g/dl (6.3-8.2); eGFR > 60.00
[2025-02-26 11:08] LABS: Glucose - Point of Care 175 mg/dl (70-99)
--- NOTE | 2025-02-26 14:15 | W.PN.ID1 ---
Date of Service
Date of Service: February 26, 2025
Today's Communication
Will submit empiric cefepime 2g IV q8h through 04/07/25.
Assessment / Plan
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
# Osteomyelitis of the right third metatarsal
# Poorly controlled diabetes mellitus
- 02/25 s/p 5th mpj resection, 3rd met bone bx, excisional debridement of ulcer right
- Await OR cx's and biopsy.
- Will need 6 weeks of IV abx per Podiatry.
- Will submit empiric cefepime 2g IV q8h through 04/07/25.
If pt discharged prior to final cx data, I will arrange to change the abx outpatient.
- Infusion sheet submitted to community case manager.
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
Diabetes mellitus
Neuropathy
Asthma
Hypertension
HLD
depression
Horseshoe kidney
History of left fifth metatarsal resection due to osteomyelitis
Appendectomy
Vasectomy
Chief Complaint
-: Other (foot osteo)
Subjective / Review of Systems
No complaints.
Vital Signs / Physical Exam
Vital Signs
Vital Signs
Temp Pulse Resp BP Pulse Ox
98.1 F 80 17 132/68 98
02/26/25 07:36 02/26/25 07:36 02/26/25 07:36 02/26/25 07:36 02/26/25 07:36
Physical Exam
Constitutional: No Acute Distress
Cardiovascular: Regular Rate and S1/S2
Pulmonary: Clear
Gastrointestinal: Soft, Non Tender and Non Distended
Wound: Other (right foot dressing in place with wound vac)
Neurological: AO x 3
Objective Data
Lab Data
Lab Results
02/26/25 07:33
02/26/25 07:33
Estimated Creat Clear 101 ml/min 02/26/25 07:33
Total Bilirubin 0.9 mg/dl (0.2-1.3) 02/26/25 07:33
AST 19 U/L (17-59) 02/26/25 07:33
ALT 18 U/L (0-50) 02/26/25 07:33
Alkaline Phosphatase 61 U/L (38-126) 02/26/25 07:33
Most recent labs reviewed.
Micro Results:
02/24/25 19:51 Anaerobic Culture - Preliminary
Wound-Superficial Culture pending. Anaerobic cultures are examined after 3
days incubation. Additional information to follow.
02/24/25 19:51 Wound Culture - Preliminary
Foot - Right Gram Stain - Preliminary
02/24/25 19:51 Tissue Culture - Preliminary
Foot - Right Gram Stain - Preliminary
02/24/25 20:00 Tissue Culture - Preliminary
Foot - Right Gram Stain - Preliminary
02/24/25 20:00 Tissue Culture - Preliminary
Foot - Right Gram Stain - Preliminary
02/24/25 03:48 MRSA Screen - Final
Other-Please specify - Other No Methicillin Resistant Staphylococcus aureus isolated.
02/2525 Foot Xray: linear collection of gas gas projecting over soft tissues of plantar aspect of distal forefoot. This presumably represents gas within patient's known foot ulcers.
Care Review
Plan reviewed with: Other (Case Management)
[2025-02-26 15:27] VITALS: BP 136/75
[2025-02-26 16:36] LABS: Glucose - Point of Care 303 mg/dl (70-99)
[2025-02-26] MEDS: NOVOLOG FLEXPEN-MODERATE RESISTANCE 7 UNITS SC (18:36)
[2025-02-26] MEDS: LOVENOX 40 MG SC (18:36)
[2025-02-26] MEDS: MAXIPIME 2000 MG IV (21:24)
[2025-02-26] MEDS: STERILE WATER FOR INJECTION 10 ML IV (21:24)
[2025-02-26 21:27] LABS: Glucose - Point of Care 344 mg/dl (70-99)
[2025-02-26] MEDS: LANTUS 0.45 UNITS SC (21:27)
[2025-02-26 23:00] VITALS: BP 130/64
[2025-02-27] MEDS: STERILE WATER FOR INJECTION 10 ML IV ×3 (05:01→21:45)
[2025-02-27] MEDS: MAXIPIME 2000 MG IV ×3 (05:01→21:44)
[2025-02-27 07:09] VITALS: BP 132/76
[2025-02-27 07:11] LABS: Glucose - Point of Care 140 mg/dl (70-99)
--- NOTE | 2025-02-27 08:13 | W.PN.POD ---
Today's Communication
Today's Communication
s/p 5th mpj resection/bone bx right---stable
vac removed
needs to be replaced today
need betadine gauze on sutures prior
needs iv abx after dc and vac
will sign off for now
cont vac, please re apply if not dc
Subjective
Chief Complaint
s/p 5th mpj resection and bone bx right foot
no pain
vac in place and on abx
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
Subjective
vasc intact
derm no edema or erythema
no acute soi
sutures intact
wounds granular, no pus, filling in
Objective
Temp Pulse Resp BP Pulse Ox
98.1 F 75 18 132/76 98
02/27/25 07:09 02/27/25 07:09 02/27/25 07:09 02/27/25 07:09 02/27/25 07:09
Vital Signs and Lab results were reviewed.
--- NOTE | 2025-02-27 08:36 | W.PN.HOSP.TC ---
Today's Communication/Plan
-
Continue cefepime
Assessment / Plan
Assessment / Plan
Assessment
54-year-old male with past medical history of IDDM, diabetic neuropathy/retinopathy, horseshoe kidney, asthma, former smoker and alcoholic presented to the ER with chronic right foot ulcers.
Plan
#Diabetic foot ulcers
#Osteomyelitis right 3rd/5th metatarsals
#S/p right fifth MP joint resection/ excisional debridement/third metatarsal biopsy
POD # 3
AFVSS
IV Zosyn discontinued
Started on cefepime 2 g, every 8 hours
Wound cultures/sensitivities pending, will de-escalate after reported
Wound VAC change today
ID on board�appreciate recs, IV antibiotics at discharge, pending cultures from OR biopsy specimen
Nonweightbearing right foot
Consulted case management, for arranging VN/VAC at home
Possible discharge today
#IDDM
#Diabetic neuropathy
#Diabetic retinopathy
Patient on carb controlled diet
Continue with home dose 45 Lantus
Continue SSI
[id number]-0.9
#Asthma
Not in acute exacerbation
Continue Singulair
Continue albuterol as needed
#Horseshoe kidney
Follow-up with nephrology as outpatient
Check BMP
#Essential hypertension
Continue lisinopril
#Hyperlipidemia
Continue fenofibrate
#DVT prophylaxis�Lovenox
Full code
Anticipated Discharge: 24 - 48 hours
Subjective/Interval History
-
Date of Service: February 27, 2025
Patient does not report any pain. Has mild urticaria right forearm.
Objective Data
-
Labs:
Laboratory Results
02/27/25
08:06
WBC Pending
Hgb Pending
Hct Pending
Plt Count Pending
Sodium Pending
Potassium Pending
Chloride Pending
Carbon Dioxide Pending
BUN Pending
Creatinine Pending
Glucose Pending
Calcium Pending
Total Bilirubin Pending
AST Pending
ALT Pending
Alkaline Phosphatase Pending
Vital Signs:
Vital Signs
Temp Pulse Resp BP Pulse Ox
98.1 F 75 18 132/76 98
02/27/25 07:09 02/27/25 07:09 02/27/25 07:09 02/27/25 07:09 02/27/25 07:09
I&O
02/26/25 02/27/25 02/28/25
06:59 06:59 06:59
Intake Total 880 / 880 440 / 440 480 / 480
Balance 880 / 880 440 / 440 480 / 480
Review of Systems
-
All other systems: Reviewed and negative (Except as mentioned above)
Musculoskeletal: Reports Other
Physical Exam
-
General: Well Developed, Well Nourished and No Apparent Distress
HEENT: Normocephalic and Atraumatic
Respiratory: Clear to Auscultation
Cardiac: Regular Rhythm and S1/S2
GI: Soft, Nontender, Nondistended and Normal Bowel Sounds
Musculoskeletal: Other (Right foot and dressing and Dash wrap, wound VAC removed, appears well-perfused, neurovasculature intact)
Skin: Warm and Dry
Neuro: Awake, Alert, Oriented and AO x 3
Psych: Calm
[2025-02-27] MEDS: NOVOLOG FLEXPEN-MODERATE RESISTANCE SC (09:01)
[2025-02-27] MEDS: CELEXA 40 MG PO (09:14)
[2025-02-27] MEDS: ZESTRIL 30 MG PO (09:14)
[2025-02-27] MEDS: TRICOR 48 MG PO (09:18)
[2025-02-27] MEDS: SINGULAIR 10 MG PO (09:20)
[2025-02-27 09:23] LABS: Hematocrit 32.5 % (39.0-52.0); Hemoglobin 11.2 g/dL (13.0-18.0); Mean Corp Hgb Conc. 34.5 g/dL (33.0-37.0); Mean Corpuscular Volume 85.5 fL (80.0-94.0); Nucleated Red Blood Cells % 0 % (-); Platelet Count 209 10^3/uL (130-400); Red Cell Dist. Width 12.3 % (11.5-14.5)
[2025-02-27 09:55] LABS: ALT (SGPT) 22 U/L (0-50); AST (SGOT) 22 U/L (17-59); Albumin 4.2 g/dl (3.5-5.0); Alkaline Phosphatase 56 U/L (38-126); Blood Urea Nitrogen 14 mg/dl (9-20); Calcium 9.9 mg/dl (8.4-10.2); Carbon Dioxide 27 mmol/L (22-30); Chloride 104 mmol/L (98-107); Estimated Creatinine Clearance 124 ml/min; Glucose 124 mg/dl (70-99); Potassium 4.7 mmol/L (3.5-5.1); Sodium 140 mmol/L (135-145); Total Protein 7.9 g/dl (6.3-8.2); eGFR > 60.00
[2025-02-27 11:16] LABS: Glucose - Point of Care 199 mg/dl (70-99)
--- NOTE | 2025-02-27 11:41 | WOUNDNOTE ---
RIGHT LATERAL FOOT
--- NOTE | 2025-02-27 11:43 | W.PN.ID1 ---
Date of Service
Date of Service: February 27, 2025
Today's Communication
Continue cefepime.
Assessment / Plan
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
# Osteomyelitis of the right third metatarsal
# Poorly controlled diabetes mellitus
- 02/25 s/p 5th mpj resection, 3rd met bone bx, excisional debridement of ulcer right
- Await OR cx's: S. aureus, GNR, Strep species
Path biopsy pending.
- Will need 6 weeks of IV abx per Podiatry.
- Continue cefepime 2g IV q8h for now.
- His Insurance does not cover Home IV abx
-Await final cx data and hopefully will be able to de-escalate to daily dosing IV abx to be administered at Outpatient Infusion Dept.
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
Diabetes mellitus
Neuropathy
Asthma
Hypertension
HLD
depression
Horseshoe kidney
History of left fifth metatarsal resection due to osteomyelitis
Appendectomy
Vasectomy
Chief Complaint
-: Other (foot osteo)
Subjective / Review of Systems
No complaints.
Vital Signs / Physical Exam
Vital Signs
Vital Signs
Temp Pulse Resp BP Pulse Ox
98.1 F 75 18 132/76 98
02/27/25 07:09 02/27/25 07:09 02/27/25 07:09 02/27/25 07:09 02/27/25 07:09
Physical Exam
Constitutional: No Acute Distress and Comfortable
Cardiovascular: Regular Rate and S1/S2
Pulmonary: Clear
Gastrointestinal: Soft, Non Tender, Non Distended and Normal Bowel Sounds
Extremities: Negative Edema
Wound: Other (Right foot dressing with wound vac)
Neurological: AO x 3
Objective Data
Lab Data
Lab Results
02/27/25 08:06
02/27/25 08:06
Estimated Creat Clear 124 ml/min 02/27/25 08:06
Total Bilirubin 0.6 mg/dl (0.2-1.3) 02/27/25 08:06
AST 22 U/L (17-59) 02/27/25 08:06
ALT 22 U/L (0-50) 02/27/25 08:06
Alkaline Phosphatase 56 U/L (38-126) 02/27/25 08:06
Most recent labs reviewed.
Micro Results:
02/24/25 19:51 Tissue Culture - Preliminary
Foot - Right Staphylococcus aureus
Diptheroids
Gram Stain - Preliminary
02/24/25 20:00 Tissue Culture - Preliminary
Foot - Right Staphylococcus aureus
Gram Stain - Preliminary
02/24/25 19:51 Wound Culture - Preliminary
Foot - Right Gram negative bacilli
Staphylococcus aureus
Streptococcus species
Gram Stain - Preliminary
02/24/25 20:00 Tissue Culture - Preliminary
Foot - Right Gram negative bacilli
Staphylococcus aureus
Streptococcus species
Gram Stain - Preliminary
02/24/25 19:51 Anaerobic Culture - Preliminary
Wound-Superficial Culture pending. Anaerobic cultures are examined after 3
days incubation. Additional information to follow.
02/24/25 03:48 MRSA Screen - Final
Other-Please specify - Other No Methicillin Resistant Staphylococcus aureus isolated.
02/2525 Foot Xray: linear collection of gas gas projecting over soft tissues of plantar aspect of distal forefoot. This presumably represents gas within patient's known foot ulcers.
--- NOTE | 2025-02-27 11:44 | WOUNDNOTE ---
RIGHT PLANTAR FOOT
[2025-02-27] MEDS: NOVOLOG FLEXPEN-MODERATE RESISTANCE 1 UNITS SC (12:36)
--- NOTE | 2025-02-27 12:40 | WOUNDNOTE ---
WO RN NOTE: Patient visited for change of right wound wound vac. Please see worklist for details. Wound vac changed as ordered and wound care was also completed to right plantar foot. [facility] wound vac has been ordered and approved. TT with
hospitalist and CM to confirm that patient will not be discharged over the weekend, as home vac will be in the wound care office. Discharge is on hold as results of bone culture are pending. Texted María at [facility] who said she will change
discharge/home vac date on Sunday when placement is confirmed. Patient offered no complaints today and did not require pain management for vac change. Heels and sacrum intact. Instructed patient on frequent turning and repositioning. Reports good
appetite. Will follow up with patient on 03/02.
[2025-02-27] MEDS: HYDROCORTISONE 1% CREAM 1 APPLIC TOPICAL (12:41)
--- NOTE | 2025-02-27 13:37 | CM ---
Addendum entered by Tatiana Ponce 02/27/25 16:06:
[facility]
Original Note:
CM reviewed chart, multiple VN referrals placed, [facility] able to accept patient for a start of care date: 03/03/25. Patient seen bedside with luna, discussed [facility] able to accept for wound vac needs. Per ID, awaiting
cultures/biopsy, referral previously placed to [facility]- update to Misty at [facility] on awaiting cultures. Per [facility], patient is covered %100 after his 2,000 deductible is met. CM will continue to follow for all discharge planning needs.
Plan; home with [facility] IV antibiotics, [facility] for wound vac- can start care 03/03
[facility]
[2025-02-27 15:23] VITALS: BP 138/76
[2025-02-27 16:22] LABS: Glucose - Point of Care 240 mg/dl (70-99)
[2025-02-27] MEDS: LOVENOX 40 MG SC (18:10)
[2025-02-27] MEDS: NOVOLOG FLEXPEN-MODERATE RESISTANCE 3 UNITS SC (18:10)
[2025-02-27] MEDS: FLUSH (NSS) 1 FLUSH IV (21:46)
[2025-02-27 22:26] LABS: Glucose - Point of Care 301 mg/dl (70-99)
[2025-02-27] MEDS: LANTUS 0.45 UNITS SC (23:08)
[2025-02-27 23:20] VITALS: BP 138/59
[2025-02-28] MEDS: FLUSH (NSS) 1 FLUSH IV ×2 (05:06→21:08)
[2025-02-28] MEDS: MAXIPIME 2000 MG IV ×3 (05:06→21:08)
[2025-02-28] MEDS: STERILE WATER FOR INJECTION 10 ML IV ×3 (05:06→21:07)
[2025-02-28 07:32] VITALS: BP 145/84
[2025-02-28 07:36] LABS: Glucose - Point of Care 110 mg/dl (70-99)
[2025-02-28] MEDS: NOVOLOG FLEXPEN-MODERATE RESISTANCE SC (08:18)
--- NOTE | 2025-02-28 08:22 | W.PN.HOSP.TC ---
Today's Communication/Plan
-
Continue cefepime
Continue wound VAC
Assessment / Plan
Assessment / Plan
Assessment
54-year-old male with past medical history of IDDM, diabetic neuropathy/retinopathy, horseshoe kidney, asthma, former smoker and alcoholic presented to the ER with chronic right foot ulcers.
Plan
#Diabetic foot ulcers
#Osteomyelitis right 3rd/5th metatarsals
#S/p right fifth MP joint resection/ excisional debridement/third metatarsal biopsy
POD # 4
AFVSS
IV Zosyn discontinued
Started on cefepime 2 g, every 8 hours, continue
Continue wound VAC
ID on board�appreciate recs, IV antibiotics at discharge, pending cultures from OR biopsy specimen
Patient's insurance does not cover home IV antibiotics, need to be administered at outpatient infusion department
Partial weightbearing right foot
#IDDM
#Diabetic neuropathy
#Diabetic retinopathy
Patient on carb controlled diet
Continue with home dose 45 Lantus
Continue SSI
[id number]-5.9
#Asthma
Not in acute exacerbation
Continue Singulair
Continue albuterol as needed
#Horseshoe kidney
Follow-up with nephrology as outpatient
Check BMP
#Essential hypertension
Continue lisinopril
#Hyperlipidemia
Continue fenofibrate
#DVT prophylaxis�Lovenox
Full code
Anticipated Discharge: 24 - 48 hours
Subjective/Interval History
-
Date of Service: February 28, 2025
Patient does not report any issues overnight.
Objective Data
-
Labs:
Laboratory Results
02/28/25
06:00
WBC Pending
Hgb Pending
Hct Pending
Plt Count Pending
Sodium Pending
Potassium Pending
Chloride Pending
Carbon Dioxide Pending
BUN Pending
Creatinine Pending
Glucose Pending
Calcium Pending
Vital Signs:
Vital Signs
Temp Pulse Resp BP Pulse Ox
98.1 F 81 20 145/84 100
02/28/25 07:32 02/28/25 07:32 02/28/25 07:32 02/28/25 07:32 02/28/25 07:32
I&O
02/27/25 02/28/25 03/01/25
06:59 06:59 06:59
Intake Total 440 / 440 720 / 720
Balance 440 / 440 720 / 720
Review of Systems
-
All other systems: Reviewed and negative
Physical Exam
-
General: Well Developed and Well Nourished
HEENT: Normocephalic and Atraumatic
Respiratory: Clear to Auscultation
Cardiac: Regular Rhythm and S1/S2
GI: Soft, Nontender, Nondistended and Normal Bowel Sounds
Musculoskeletal: Other (Right foot in dressing and Dash wrap, wound VAC in place, appears well-perfused, neurovasculature intact)
Skin: Warm and Dry
Neuro: Awake, Alert, Oriented and AO x 3
Psych: Calm
[2025-02-28] MEDS: SINGULAIR 10 MG PO (08:27)
[2025-02-28] MEDS: ZESTRIL 30 MG PO (08:27)
[2025-02-28] MEDS: TRICOR 48 MG PO (08:27)
[2025-02-28] MEDS: CELEXA 40 MG PO (08:27)
[2025-02-28 08:59] LABS: Hematocrit 33.5 % (39.0-52.0); Hemoglobin 11.7 g/dL (13.0-18.0); Mean Corp Hgb Conc. 34.9 g/dL (33.0-37.0); Mean Corpuscular Volume 85.2 fL (80.0-94.0); Platelet Count 214 10^3/uL (130-400); Red Cell Dist. Width 12.3 % (11.5-14.5)
[2025-02-28 09:27] LABS: Blood Urea Nitrogen 17 mg/dl (9-20); Calcium 10.1 mg/dl (8.4-10.2); Carbon Dioxide 26 mmol/L (22-30); Chloride 106 mmol/L (98-107); Estimated Creatinine Clearance 124 ml/min; Glucose 119 mg/dl (70-99); Potassium 4.7 mmol/L (3.5-5.1); Sodium 140 mmol/L (135-145); eGFR > 60.00
[2025-02-28] MEDS: HYDROCORTISONE 1% CREAM 1 APPLIC TOPICAL (12:19)
[2025-02-28 12:39] LABS: Glucose - Point of Care 199 mg/dl (70-99)
[2025-02-28] MEDS: NOVOLOG FLEXPEN-MODERATE RESISTANCE 1 UNITS SC (13:28)
--- NOTE | 2025-02-28 14:53 | W.PN.ID1 ---
Date of Service
Date of Service: February 28, 2025
Today's Communication
Continue current antibiotics.
Assessment / Plan
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
# Osteomyelitis of the right third metatarsal
# Poorly controlled diabetes mellitus
- 02/25 s/p 5th mpj resection, 3rd met bone bx, excisional debridement of ulcer right
- Await OR cx's: S. aureus, GNR, Strep species
Path biopsy pending.
- Will need 6 weeks of IV abx per Podiatry.
- Continue cefepime 2g IV q8h for now.
- His Insurance does not cover Home IV abx
-Await final cx data and hopefully will be able to de-escalate to daily dosing IV abx to be administered at Outpatient Infusion Dept.
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
Diabetes mellitus
Neuropathy
Asthma
Hypertension
HLD
depression
Horseshoe kidney
History of left fifth metatarsal resection due to osteomyelitis
Appendectomy
Vasectomy
Chief Complaint
-: Other (foot osteo)
Subjective / Review of Systems
Review of Systems: No Fever and No Chills
Vital Signs / Physical Exam
Vital Signs
Vital Signs
Temp Pulse Resp BP Pulse Ox
98.1 F 81 20 145/84 100
02/28/25 07:32 02/28/25 07:32 02/28/25 07:32 02/28/25 07:32 02/28/25 07:32
Physical Exam
Constitutional: No Acute Distress, Comfortable and Non-toxic
Eyes: Sclera Anicteric
Cardiovascular: S1/S2; Negative S3/S4
Pulmonary: Non Labored
Gastrointestinal: Soft, Non Tender and Non Distended
Wound: Other (Left foot with Dash wrap in place. VAC in place.)
Neurological: Awake and Alert
Psychological: Calm
Objective Data
Lab Data
Lab Results
02/28/25 08:35
02/28/25 08:35
Estimated Creat Clear 124 ml/min 02/28/25 08:35
Total Bilirubin 0.6 mg/dl (0.2-1.3) 02/27/25 08:06
AST 22 U/L (17-59) 02/27/25 08:06
ALT 22 U/L (0-50) 02/27/25 08:06
Alkaline Phosphatase 56 U/L (38-126) 02/27/25 08:06
Most recent labs reviewed.
Micro Results:
02/24/25 19:51 Anaerobic Culture - Preliminary
Wound-Superficial Culture pending. Anaerobic cultures are examined after 3
days incubation. Additional information to follow.
02/24/25 19:51 Tissue Culture - Preliminary
Foot - Right Staphylococcus aureus
Diptheroids
Gram Stain - Preliminary
02/24/25 20:00 Tissue Culture - Preliminary
Foot - Right Staphylococcus aureus
Gram Stain - Preliminary
02/24/25 19:51 Wound Culture - Preliminary
Foot - Right Morganella morganii
Staphylococcus aureus
Streptococcus species
Gram Stain - Preliminary
02/24/25 20:00 Tissue Culture - Preliminary
Foot - Right Morganella morganii
Staphylococcus aureus
Gram negative bacilli
Group G Streptococcus
Gram Stain - Preliminary
02/24/25 03:48 MRSA Screen - Final
Other-Please specify - Other No Methicillin Resistant Staphylococcus aureus isolated.
02/2525 Foot Xray: linear collection of gas gas projecting over soft tissues of plantar aspect of distal forefoot. This presumably represents gas within patient's known foot ulcers.
[2025-02-28 15:15] VITALS: BP 133/83
[2025-02-28 16:32] LABS: Glucose - Point of Care 224 mg/dl (70-99)
[2025-02-28] MEDS: NOVOLOG FLEXPEN-MODERATE RESISTANCE 3 UNITS SC (17:34)
[2025-02-28] MEDS: LOVENOX 40 MG SC (17:35)
[2025-02-28 21:17] LABS: Glucose - Point of Care 330 mg/dl (70-99)
[2025-02-28] MEDS: LANTUS 0.45 UNITS SC (21:17)
[2025-02-28 23:00] VITALS: BP 108/68
[2025-03-01] MEDS: STERILE WATER FOR INJECTION 10 ML IV ×3 (05:11→22:36)
[2025-03-01] MEDS: FLUSH (NSS) 2 FLUSH IV (05:11)
[2025-03-01] MEDS: MAXIPIME 2000 MG IV ×3 (05:11→22:36)
[2025-03-01 06:47] LABS: Hematocrit 32.3 % (39.0-52.0); Hemoglobin 11.1 g/dL (13.0-18.0); Mean Corp Hgb Conc. 34.4 g/dL (33.0-37.0); Mean Corpuscular Volume 85.0 fL (80.0-94.0); Platelet Count 189 10^3/uL (130-400); Red Cell Dist. Width 12.4 % (11.5-14.5)
[2025-03-01 07:00] VITALS: BP 128/78
[2025-03-01 07:21] LABS: Blood Urea Nitrogen 22 mg/dl (9-20); Calcium 9.5 mg/dl (8.4-10.2); Carbon Dioxide 27 mmol/L (22-30); Chloride 105 mmol/L (98-107); Estimated Creatinine Clearance 124 ml/min; Glucose 201 mg/dl (70-99); Potassium 5.0 mmol/L (3.5-5.1); Sodium 138 mmol/L (135-145); eGFR > 60.00
[2025-03-01 07:57] LABS: Glucose - Point of Care 180 mg/dl (70-99)
--- NOTE | 2025-03-01 08:06 | W.PN.HOSP.TC ---
Today's Communication/Plan
-
Continue cefepime
Continue wound VAC
monitor blood sugars
Assessment / Plan
Assessment / Plan
Assessment
54-year-old male with past medical history of IDDM, diabetic neuropathy/retinopathy, horseshoe kidney, asthma, former smoker and alcoholic presented to the ER with chronic right foot ulcers.
Plan
#Diabetic foot ulcers with osteomyelitis right 3rd/5th metatarsals and gas gangrene
#S/p right fifth MP joint resection/ excisional debridement/third metatarsal biopsy
POD # 5
AFVSS
Continue cefepime 2 g, every 8 hours�day 4
Will de-escalate based on sensitivities from OR bone biopsy specimen
Prelim bone culture positive with polymicrobial infection-Alcaligenes, Morganella, MSSA, group G strep.
ID on board�appreciate recs,
Patient needs IV antibiotics at discharge for a total course of 6 weeks
Patient's insurance does not cover home IV antibiotics, need to be administered at outpatient infusion department
Partial weightbearing right foot
Continue wound VAC
#IDDM
#Diabetic neuropathy
#Diabetic retinopathy
Patient on carb controlled diet
Continue with home dose 45 Lantus
Continue SSI-increased to high resistance
Patient needs AC Julissa dose due to his fluctuating sugars, but patient refused to be started on AC aspart. He would like to continue with his home sliding scale.
VqC0l-2.9
#Nevus
Newly diagnosed during this hospital stay
Near left areola
F/U with dermatology as outpatient
#Asthma
Not in acute exacerbation
Continue Singulair
Continue albuterol as needed
#Horseshoe kidney
Follow-up with nephrology as outpatient
Check BMP
#Essential hypertension
Continue lisinopril
#Hyperlipidemia
Continue fenofibrate
#DVT prophylaxis�Lovenox
Full code
Anticipated Discharge: Within 24 hours
Subjective/Interval History
-
Date of Service: March 01, 2025
No acute overnight issues.
Objective Data
-
Labs:
Laboratory Results
03/01/25
05:54
WBC 7.6
Hgb 11.1 L
Hct 32.3 L
Plt Count 189
Sodium 138
Potassium 5.0
Chloride 105
Carbon Dioxide 27
BUN 22 H
Creatinine 0.9
Glucose 201 H
Calcium 9.5
Vital Signs:
Vital Signs
Temp Pulse Resp BP Pulse Ox
97.8 F 76 16 108/68 94
02/28/25 23:00 02/28/25 23:00 02/28/25 23:00 02/28/25 23:00 02/28/25 23:00
I&O
02/28/25 03/01/25 03/02/25
06:59 06:59 06:59
Intake Total 720 / 720 600 / 600
Balance 720 / 720 600 / 600
Review of Systems
-
All other systems: Reviewed and negative
Physical Exam
-
General: Well Developed and Well Nourished
HEENT: Normocephalic and Atraumatic
Respiratory: Clear to Auscultation
Cardiac: Regular Rhythm and S1/S2
GI: Soft, Nontender, Nondistended and Normal Bowel Sounds
Musculoskeletal: Other (Right foot in dressing and Dash wrap, wound VAC in place, appears well-perfused, neurovasculature intact)
Skin: Warm and Dry
Neuro: Awake, Alert, Oriented, AO x 3 and Nonfocal/Grossly Intact
Psych: Calm
[2025-03-01] MEDS: ZESTRIL 30 MG PO (09:16)
[2025-03-01] MEDS: CELEXA 40 MG PO (09:16)
[2025-03-01] MEDS: SINGULAIR 10 MG PO (09:16)
[2025-03-01] MEDS: TRICOR 48 MG PO (09:16)
[2025-03-01] MEDS: NOVOLOG FLEXPEN-HIGH RESISTANCE 2 UNITS SC (09:17)
[2025-03-01] MEDS: NOVOLOG FLEXPEN-MODERATE RESISTANCE SC (09:22)
[2025-03-01 12:06] LABS: Glucose - Point of Care 255 mg/dl (70-99)
[2025-03-01] MEDS: NOVOLOG FLEXPEN-HIGH RESISTANCE 7 UNITS SC (13:04)
[2025-03-01 15:00] VITALS: BP 158/81
[2025-03-01 16:31] LABS: Glucose - Point of Care 246 mg/dl (70-99)
[2025-03-01] MEDS: LOVENOX 40 MG SC (18:04)
[2025-03-01] MEDS: NOVOLOG FLEXPEN-HIGH RESISTANCE 4 UNITS SC (18:04)
[2025-03-01 22:31] LABS: Glucose - Point of Care 312 mg/dl (70-99)
[2025-03-01 22:35] VITALS: BP 139/75
[2025-03-01] MEDS: LANTUS 0.45 UNITS SC (22:36)
[2025-03-02] MEDS: STERILE WATER FOR INJECTION 10 ML IV (05:04)
[2025-03-02] MEDS: MAXIPIME 2000 MG IV (05:04)
[2025-03-02 07:39] LABS: Glucose - Point of Care 195 mg/dl (70-99)
[2025-03-02 07:46] VITALS: BP 143/72
[2025-03-02 08:11] LABS: Hematocrit 32.0 % (39.0-52.0); Hemoglobin 11.1 g/dL (13.0-18.0); Mean Corp Hgb Conc. 34.7 g/dL (33.0-37.0); Mean Corpuscular Volume 84.2 fL (80.0-94.0); Platelet Count 182 10^3/uL (130-400); Red Cell Dist. Width 12.2 % (11.5-14.5)
--- NOTE | 2025-03-02 08:52 | W.PN.UPDATE ---
Update Note
Progress Note Update
pt seen at bedside
no pain
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
vac on
IV abx per ID
a/p s/p 5th met resection/bx 3rd right--stable
wounds granular
sutures intact
no soi
cont vac,iv abx for 6 weeks
nwb right foot
fu 1 week upon dc
will sign off
[2025-03-02 09:05] LABS: Blood Urea Nitrogen 20 mg/dl (9-20); Calcium 9.6 mg/dl (8.4-10.2); Carbon Dioxide 26 mmol/L (22-30); Chloride 106 mmol/L (98-107); Estimated Creatinine Clearance 124 ml/min; Glucose 199 mg/dl (70-99); Potassium 4.8 mmol/L (3.5-5.1); Sodium 136 mmol/L (135-145); eGFR > 60.00
[2025-03-02] MEDS: NOVOLOG FLEXPEN-HIGH RESISTANCE 2 UNITS SC (09:11)
[2025-03-02] MEDS: CELEXA 40 MG PO (09:35)
[2025-03-02] MEDS: ZESTRIL 30 MG PO (09:36)
[2025-03-02] MEDS: SINGULAIR 10 MG PO (09:37)
[2025-03-02] MEDS: TRICOR 48 MG PO (09:37)
[2025-03-02] MEDS: INVANZ 60 MG IV (11:03)
[2025-03-02] MEDS: FLUSH (NSS) 1 FLUSH IV (11:06)
[2025-03-02 11:28] LABS: Glucose - Point of Care 277 mg/dl (70-99)
--- NOTE | 2025-03-02 11:54 | WOUNDNOTE ---
R FOOT (LATERAL FOREFOOT)
--- NOTE | 2025-03-02 11:54 | WOUNDNOTE ---
R FOOT (LATERAL FOREFOOT)
--- NOTE | 2025-03-02 11:57 | WOUNDNOTE ---
WOC RN note: Patient's R lateral foot and plantar foot appear clean. Moderate ss drainage. R lateral foot wound vac dressing changed and R plantar foot dressing changed with help with WOC RN student Lakshmi Overton. Patient instructed pressure injury
prevention measures. Sacral crease with minimal pink skin r/t moisture, sacral skin intact. Patient verbalizes compliance with NWB R foot. He has a knee scooter in his room. He stated he also has a forefoot off loading surgical shoe. Will switch to
his home ready vac if discharged today. Patient verbalized understanding how to disconnect and reconnect vac tubing as needed.
--- NOTE | 2025-03-02 12:19 | W.PN.ID1 ---
Date of Service
Date of Service: March 02, 2025
Today's Communication
See below.
Assessment / Plan
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
# Osteomyelitis of the right third metatarsal
# Poorly controlled diabetes mellitus
- 02/25 s/p 5th mpj resection, 3rd met bone bx, excisional debridement of ulcer right
- Await OR cx's: S. aureus, Morganella, Strep species, Acaligenes faecalis
3rd MT bone path pending.
- Will need 6 weeks of IV abx per Podiatry.
- Patient unable to afford deductible for home IV abx/nursing care.
- Change cefepime to Ertapenem 1g IV q24 in hopes that he may go to Outpatient Infusion Dept daily.
Infusion sheet submitted to case management rn.
HOWEVER, per case management, pt lives 1 hr away from Infusion Dept.
Also, pt is non-weight bearing right foot and thus should not drive.
Pt also states he needs to continue working ( will probably refuse SNF for IV abx).
- Asked pathologist to expedite review of bone pathology regarding whether or not surgical cure of 5th MT and if 3rd MT bone +/1 osteo
- Will consider po abx's if exhausted all options for IV abx.
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
Diabetes mellitus
Neuropathy
Asthma
Hypertension
HLD
depression
Horseshoe kidney
History of left fifth metatarsal resection due to osteomyelitis
Appendectomy
Vasectomy
Chief Complaint
-: Other (foot osteo)
Subjective / Review of Systems
No new complaints.
Vital Signs / Physical Exam
Vital Signs
Vital Signs
Temp Pulse Resp BP Pulse Ox
97.9 F 76 16 143/72 97
03/02/25 07:46 03/02/25 07:46 03/02/25 07:46 03/02/25 07:46 03/02/25 07:46
Physical Exam
Constitutional: No Acute Distress and Comfortable
Cardiovascular: Regular Rate and S1/S2
Pulmonary: Clear
Gastrointestinal: Soft, Non Tender and Non Distended
Wound: Other (Right foot wounds examined with wound RN. Lateral wound deep, dry; Plantar 3rd MT wound without surrounding erythema. )
Neurological: AO x 3
Objective Data
Lab Data
Lab Results
03/02/25 06:53
03/02/25 06:53
Estimated Creat Clear 124 ml/min 03/02/25 06:53
Total Bilirubin 0.6 mg/dl (0.2-1.3) 02/27/25 08:06
AST 22 U/L (17-59) 02/27/25 08:06
ALT 22 U/L (0-50) 02/27/25 08:06
Alkaline Phosphatase 56 U/L (38-126) 02/27/25 08:06
Most recent labs reviewed.
Micro Results:
02/24/25 19:51 Anaerobic Culture - Preliminary
Wound-Superficial Culture pending. Anaerobic cultures are examined after 3
days incubation. Additional information to follow.
02/24/25 19:51 Tissue Culture - Final
Foot - Right Alcaligenes Faecalis
S aureus-Methicillin Sensitive
Diptheroids
Gram Stain - Final
02/24/25 20:00 Tissue Culture - Final
Foot - Right S aureus-Methicillin Sensitive
Gram Stain - Final
02/24/25 19:51 Wound Culture - Preliminary
Foot - Right Morganella morganii
S aureus-Methicillin Sensitive
Streptococcus species
Gram Stain - Preliminary
02/24/25 20:00 Tissue Culture - Final
Foot - Right Alcaligenes Faecalis
Morganella morganii
S aureus-Methicillin Sensitive
Group G Streptococcus
Gram Stain - Final
02/24/25 03:48 MRSA Screen - Final
Other-Please specify - Other No Methicillin Resistant Staphylococcus aureus isolated.
02/2525 Foot Xray: linear collection of gas gas projecting over soft tissues of plantar aspect of distal forefoot. This presumably represents gas within patient's known foot ulcers.
Care Review
Plan reviewed with: Nurse (Wound RN Dayana) and Other (manager of broadcast content Telma)
[2025-03-02] MEDS: NOVOLOG FLEXPEN-HIGH RESISTANCE 7 UNITS SC (13:12)
--- NOTE | 2025-03-02 14:04 | W.PN.UPDATE ---
Update Note
Progress Note Update
Reviewed bone path: 5th proximal bone negative osteo (surgical cure). 3rd MT bone biopsy negative osteo. I discussed case with podiatry, Dr. Gomez, regarding transition to po antibiotics. Dr. Gomez prefers IV abx due to +bone cx. Discussed with
Crate Tier who had conference call with his insurance and patient. Fortunately, they are able to work-out a payment plan for home IV abx. Picc line ordered.
--- NOTE | 2025-03-02 15:31 | CM ---
CM reviewed pt with Dr. Worrell, anticipate dc tomorrow
Lengthy bedside meeting with pt on conference call with luna
They are concerned about associated costs and finances
Conference call with pt and BRIAN Maldonado
Pt has met $800/$1200 of his in-network deductible, $1200 more to go
Pt has 100% coverage for hospitalizations, SNF care, BLS, VN, and IV home infusions once deductible met- no co-pays
Pt notes he has can take on costs for IV abx and care
Conference call with Misty[facility] with pt and his fiances to discuss plan for teaching
PICC order placed by Dr Oviedo, script sent to Misty
Pt with wound vac to be changed Q48-72 hours per vac orders, home vac bedside per WOC
Call with [facility] [phone] who initially accepted referral for VN
Per their auth department, they are out of network, cost would be $125/visit private pay
Large net of additional referrals sent via [facility] for VN- 37 referrals have been sent
Attempting to find in-network VN provider for [place]
Update to pt and Misty/Bora
Pt aware dc may be delayed until VN provider can be confirmed
Discharge Disposition- home wit IV abx/[facility] and VN for wound vac
[2025-03-02 15:55] VITALS: BP 138/79
[2025-03-02 16:59] LABS: Glucose - Point of Care 244 mg/dl (70-99)
--- NOTE | 2025-03-02 18:48 | W.PN.HOSP.TC ---
Addendum entered and electronically signed by Bob Worrell MD 03/02/25 22:08:
Attending Addendum-
I saw and evaluated the patient. I reviewed the resident�s note and agree with findings and plan as documented in the resident�s note. Sub: Feels improved. Denies pain, fevers chills. Full 10 point ROS reviewed and negative except as documented
Exam: Vitals reviewed in chart GEN-NAD heart RRR lungs clear abd soft LE- Right incision CDI sutures in place wound vac in place
#Diabetic foot ulcers with osteomyelitis right 3rd/5th metatarsals and gas gangrene
#S/p right fifth MP joint resection/ excisional debridement/third metatarsal biopsy - 02/24 Dr Gomez
POD # 6
transition from cefepime to ertapenem
patient with definitive tx with surgery but will cont IV abx per pods due to pos bone bx - right 5th met head
Prelim bone culture positive with polymicrobial infection
ID on board�appreciate recs,
IV antibiotics at discharge for a total course of 6 weeks
Partial weightbearing right foot
Continue wound VAC
place PICC
#IDDM
#Diabetic neuropathy
#Diabetic retinopathy
Patient on carb controlled diet
Continue with home dose 45 Lantus
Continue SSI-increased to high resistance
Patient needs AC Julissa dose due to his fluctuating sugars, but patient refused to be started on AC aspart. He would like to continue with his home sliding scale.
[id number]
#Nevus
Newly diagnosed during this hospital stay
Near left areola
F/U with dermatology as outpatient
#Asthma
Not in acute exacerbation
Continue Singulair
Continue albuterol as needed
#Horseshoe kidney
Follow-up with nephrology as outpatient
trend BMP
#Essential hypertension-cont lisinopril
#Hyperlipidemia-cont fenofibrate
#Depression- cont citalopram
#DVT prophylaxis�Lovenox
Full code
Dispo DC home in am d/w CM
Time spent coordinating care, review of plan of care with resident, personally reviewed records in EMR, med rec, consults, notes, labs, radiology, d/w nursing and CM� 51 mins
Original Note:
Today's Communication/Plan
-
CASE MANAGEMENT (CONTACT TOMORROW to inquire regarding Iv line while on discharge for antibiotics)
Dr Oviedo consult for the antibiotic continuation.
Assessment / Plan
Assessment / Plan
Assessment
54-year-old male with past medical history of IDDM, diabetic neuropathy/retinopathy, horseshoe kidney, asthma, former smoker and alcoholic presented to the ER with chronic right foot ulcers.
Plan
#Diabetic foot ulcers with osteomyelitis right 3rd/5th metatarsals and gas gangrene
#S/p right fifth MP joint resection/ excisional debridement/third metatarsal biopsy
POD # 6
AFVSS
CEFIPIME hcl 2000mg IV STOPPED, ERTAPENAM started today.
Will de-escalate based on sensitivities from OR bone biopsy specimen
Prelim bone culture positive with polymicrobial infection-Alcaligenes, Morganella, MSSA, group G strep.
ID on board�appreciate recs,
Patient needs IV antibiotics at discharge for a total course of 6 weeks
Patient's insurance does not cover home IV antibiotics, need to be administered at outpatient infusion department
Partial weightbearing right foot
Continue wound VAC
#IDDM
#Diabetic neuropathy
#Diabetic retinopathy
Patient on carb controlled diet
Continue with home dose 45 Lantus
Continue SSI-increased to high resistance
Patient needs AC Julissa dose due to his fluctuating sugars, but patient refused to be started on AC aspart. He would like to continue with his home sliding scale.
Glucose- 199mg/dl (On 03/02)
#Nevus
Newly diagnosed during this hospital stay
Near left areola
F/U with dermatology as outpatient
#Asthma
Not in acute exacerbation
Continue Singulair
Continue albuterol as needed
#Horseshoe kidney
Follow-up with nephrology as outpatient
Check BMP
#Essential hypertension
Continue lisinopril
#Hyperlipidemia
Continue fenofibrate
#DVT prophylaxis�Lovenox
Full code
Anticipated Discharge: 24 - 48 hours
Subjective/Interval History
-
Date of Service: March 02, 2025
Full code
Patient is feeling better. Erythematous right foot ulcer, and patient is on wound VAC.
Objective Data
-
Labs:
Laboratory Results
03/02/25
06:53
WBC 7.5
Hgb 11.1 L
Hct 32.0 L
Plt Count 182
Sodium 136
Potassium 4.8
Chloride 106
Carbon Dioxide 26
BUN 20
Creatinine 0.9
Glucose 199 H
Calcium 9.6
Vital Signs:
Vital Signs
Temp Pulse Resp BP Pulse Ox
97.7 F 79 16 138/79 100
03/02/25 15:55 03/02/25 15:55 03/02/25 15:55 03/02/25 15:55 03/02/25 15:55
I&O
03/01/25 03/02/25 03/03/25
06:59 06:59 06:59
Intake Total 600 / 600 600 / 600 180 / 180
Balance 600 / 600 600 / 600 180 / 180
Review of Systems
-
History Source: Patient
Constitutional: Reports No Symptoms
EENT: Reports No Symptoms Reported
Respiratory: Reports No Symptoms
Cardiac: Reports No Symptoms
Abdomen/GI: Reports No Symptoms
Genitourinary: Reports No Symptoms
Musculoskeletal: Reports No Symptoms
Neuro: Reports No Symptoms
Endocrine: Reports No Symptoms
Hematologic / Lymphatic: Reports No Symptoms
Allergy / Immunology: Reports No Symptoms
Physical Exam
-
General: Well Developed
HEENT: Normocephalic
Respiratory: Clear to Auscultation
Cardiac: Regular Rhythm
GI: Soft and Nontender
Musculoskeletal: No Clubbing and No Cyanosis
Skin: Warm
Neuro: Awake and No Motor Deficits
Hematologic / Lymphatic: No Lymphadenopathy
Psych: Calm
[2025-03-02] MEDS: NOVOLOG FLEXPEN-HIGH RESISTANCE 4 UNITS SC (18:50)
[2025-03-02] MEDS: LOVENOX 40 MG SC (18:51)
[2025-03-02 21:51] LABS: Glucose - Point of Care 345 mg/dl (70-99)
[2025-03-02] MEDS: LANTUS 0.45 UNITS SC (22:25)
[2025-03-02 23:21] VITALS: BP 101/55
[2025-03-03 05:45] LABS: Hematocrit 31.1 % (39.0-52.0); Hemoglobin 10.9 g/dL (13.0-18.0); Mean Corp Hgb Conc. 35.0 g/dL (33.0-37.0); Mean Corpuscular Volume 83.8 fL (80.0-94.0); Nucleated Red Blood Cells % 0 % (-); Platelet Count 162 10^3/uL (130-400); Red Cell Dist. Width 12.3 % (11.5-14.5)
[2025-03-03 06:17] LABS: ALT (SGPT) 54 U/L (0-50); AST (SGOT) 50 U/L (17-59); Albumin 4.0 g/dl (3.5-5.0); Alkaline Phosphatase 54 U/L (38-126); Blood Urea Nitrogen 20 mg/dl (9-20); Calcium 9.8 mg/dl (8.4-10.2); Carbon Dioxide 26 mmol/L (22-30); Chloride 106 mmol/L (98-107); Estimated Creatinine Clearance 124 ml/min; Glucose 193 mg/dl (70-99); Potassium 4.5 mmol/L (3.5-5.1); Sodium 137 mmol/L (135-145); Total Protein 7.2 g/dl (6.3-8.2); eGFR > 60.00
[2025-03-03 07:20] VITALS: BP 126/67
[2025-03-03 07:53] LABS: Glucose - Point of Care 134 mg/dl (70-99)
[2025-03-03] MEDS: CELEXA 40 MG PO (07:55)
[2025-03-03] MEDS: SINGULAIR 10 MG PO (07:55)
[2025-03-03] MEDS: TRICOR 48 MG PO (07:55)
[2025-03-03] MEDS: NOVOLOG FLEXPEN-HIGH RESISTANCE SC (07:55)
[2025-03-03] MEDS: ZESTRIL 30 MG PO (07:55)
--- NOTE | 2025-03-03 09:00 | W.PN.ID1 ---
Date of Service
Date of Service: March 03, 2025
Today's Communication
Continue Ertapenem 1g IV q24h through 04/07/25
Assessment / Plan
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
# Osteomyelitis of the right third metatarsal
# Poorly controlled diabetes mellitus
- 02/25 s/p 5th mpj resection, 3rd met bone bx, excisional debridement of ulcer right; wound vac plaement
- OR cx's: S. aureus, Morganella, Strep species, Acaligenes faecalis
Bone path: 3rd MT bone path neg ostep; R 5th first proximal bone margin no osteo
- Will need 6 weeks of IV abx per Podiatry.
- Suspect surgical cure based on bone path. However, podiatry adamant about treating with IV abx due to +bone cx's.
- Insurance coverage for home IV abx resolved.
- Continue Ertapenem 1g IV q24h through 04/07/25
Infusion sheet submitted to family service caseworker 03/02.
Picc in place.
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
Diabetes mellitus
Neuropathy
Asthma
Hypertension
HLD
depression
Horseshoe kidney
History of left fifth metatarsal resection due to osteomyelitis
Appendectomy
Vasectomy
Chief Complaint
-: Other (foot osteo)
Subjective / Review of Systems
Set up for home IV abx but not wound care visits yet. He is frustrated.
Vital Signs / Physical Exam
Vital Signs
Vital Signs
Temp Pulse Resp BP Pulse Ox
98.1 F 80 18 126/67 97
03/03/25 07:20 03/03/25 07:20 03/03/25 07:20 03/03/25 07:20 03/03/25 07:20
Physical Exam
Constitutional: No Acute Distress
Cardiovascular: Regular Rate and S1/S2
Pulmonary: Clear
Gastrointestinal: Soft, Non Tender and Non Distended
Extremities: Negative Edema
Neurological: AO x 3
Lines: PICC (RUE PICC intact)
Objective Data
Lab Data
Lab Results
03/03/25 05:14
03/03/25 05:15
Estimated Creat Clear 124 ml/min 03/03/25 05:15
Total Bilirubin 0.4 mg/dl (0.2-1.3) 03/03/25 05:15
AST 50 U/L (17-59) 03/03/25 05:15
ALT 54 U/L (0-50) H 03/03/25 05:15
Alkaline Phosphatase 54 U/L (38-126) 03/03/25 05:15
Most recent labs reviewed.
Micro Results:
02/24/25 19:51 Wound Culture - Final
Foot - Right Morganella morganii
S aureus-Methicillin Sensitive
Streptococcus species
Gram Stain - Final
02/24/25 19:51 Anaerobic Culture - Final
Wound-Superficial Bacteroides Caccae
02/24/25 19:51 Tissue Culture - Final
Foot - Right Alcaligenes Faecalis
S aureus-Methicillin Sensitive
Diptheroids
Gram Stain - Final
02/24/25 20:00 Tissue Culture - Final
Foot - Right S aureus-Methicillin Sensitive
Gram Stain - Final
02/24/25 20:00 Tissue Culture - Final
Foot - Right Alcaligenes Faecalis
Morganella morganii
S aureus-Methicillin Sensitive
Group G Streptococcus
Gram Stain - Final
02/24/25 03:48 MRSA Screen - Final
Other-Please specify - Other No Methicillin Resistant Staphylococcus aureus isolated.
02/2525 Foot Xray: linear collection of gas gas projecting over soft tissues of plantar aspect of distal forefoot. This presumably represents gas within patient's known foot ulcers.
--- NOTE | 2025-03-03 11:19 | CM ---
Addendum entered by Maury Alfaro 03/03/25 13:01:
Spoke w/ Misty, confirmed bedside teaching will occur today by another nurse. Confirmed speaking w/ patient and spouse about details of home infusion. Delivery of abx and supplies tomorrow
Updated resident on pt ability to dc today after teaching and daily dose
[facility]

Original Note:
Chart reviewed. [facility] accepted for services, confirmed w/ Lakshmi/Lorna of acceptance and start of care for tomorrow, 03/04. Wound vac directions and order already sent via [facility] yesterday.
CM attempted call to Misty/Miah Meng to confirm d/c plan, left message
Faxed PICC report and CXR to [facility]
Updated resident
Plan: Home today w/ Miah Meng and Lorna
[2025-03-03 11:37] LABS: Glucose - Point of Care 158 mg/dl (70-99)
[2025-03-03] MEDS: INVANZ 60 MG IV (12:08)
[2025-03-03] MEDS: NOVOLOG FLEXPEN-HIGH RESISTANCE 2 UNITS SC (12:09)
[2025-03-03 15:35] VITALS: BP 134/80
--- NOTE | 2025-03-03 16:00 | WOUNDNOTE ---
JOSE RN NOTE: Home vac unit placed, at bedside for teaching. Answered all questions, return demonstration with patient on changing canister. Placed hospital vac in soiled utility rm and notified [employer] of discontinued use.
--- NOTE | 2025-03-03 17:36 | W.DCSUMMARY ---
Addendum entered and electronically signed by Bob Worrell MD 03/03/25 22:25:
Read, reviewed, and agree. See same day progress note for additional details. DC home with wound vac and IV abx until 04/07 for OM.
Bruce Worrell MD
Original Note:
Documented by User: Martha Castaneda MD, Resident 03/03/25 19:11
Discharge Summary
Discharge Data
Date of Admission: 02/23/25
Date of Discharge: 03/03/25
-
Pending Results: No
Hospital Course
Discharging Physician : , Bob Hinkle, Yinka Rosales
Disposition : Home.
Primary care physician : Dr. Carmen Agee
Principal Discharge diagnosis : Diabetic foot ulcers with osteomyelitis right 3rd/5th metatarsals.
Chronic Discharge diagnosis :
Hospital Course :
54-year-old diabetic male arrived to ER 02/23/25 for diabetic wound on the base of his right foot that has been chronic but also acute with malodorous smell. He reported with swelling to his right lower extremity. He had an outpatient MRI completed
at [facility] which showed osteomyelitis of the fifth metatarsal and third metatarsal heads.Zosyn started at ED Course.
at the course of the hospitalization: Wound VAC changed
Blood culture positive for
ALCALIGENES FAECALIS, Morganella morganii, S aureus-Methicillin Sensitive, Group G Streptococcus*, Diptheroids.
On POD # 6
transitioned from cefepime to ertapenem
Ertapenam 1000mg in Sodium Chloride.
Discharge Follow up:
On Post Op Day 7:
Partial weightbearing right foot
Continued wound VAC
placed PICC
([facility] accepted for services, confirmed w/ Lakshmi/Lorna of acceptance and start of care for tomorrow, 03/04. Wound vac directions and order already sent via [facility] yesterday.)
Wound management instruction was given.
IDDM
Patient was on carb controlled diet
Continued with home dose 45 Lantus, SSI-increased to high resistance
Patient needed AC Julissa dose due to his fluctuating sugars, but patient refused to be started on AC aspart. He would like to continue with his home sliding scale.
Asthma
was not in acute exacerbation, Continued Singulair, albuterol as needed
Essential hypertension was treated with lisinopril
Hyperlipidemia- was continued with home medication Fenofibrate.
Depression - patient felt good,no depressive episodes at the course of the hospitalization, citalopram was continued.
Important imaging findings :
CR Foot- Right min 3 views:
No plain film evidence for osteomyelitis; linear collection of gas gas projecting over soft tissues of plantar aspect of distal forefoot. This presumably represents gas within patient's known foot ulcers.
Procedure findings :
On 02/24 OT procedure : Excisional debridement down to bone, the lateral aspect, fifth metatarsal, right foot. Fifth metatarsal head resection, Proximal phalanx base resection,Debridement of ulceration, plantar aspect, right foot.
Post op followed up with:
1. Necrotic ulceration, fifth metatarsal, right foot.
2. Osteomyelitis of the fifth metatarsal head, right foot.
3. Osteomyelitis of the proximal phalanx, fifth toe, right foot.
4. Ulcerations submetatarsal three, right foot.
5. Osteomyelitis third metatarsal right foot.
Started on cefepime 2 g at POST OP.
Discharge Plan
-
Patient Disposition: Home with Home Care
Discharge Diagnosis/Procedures: Cellulitis of right foot
Osteomyelitis fifth metatarsal head, proximal phalanx fifth toe, right foot
Osteomyelitis third metatarsal right foot
S/p excisional debridement, fifth metatarsal head resection, proximal phalanx base resection, bone biopsy third metatarsal
Pigmented papule-left areola
Condition: Good
Diet: Diabetic, Carb Controlled
Activity: Do not bear weight R leg
Additional Activity: None weightbearing right foot
Driving Restrictions: Not until seen by your Dr
Other Services: VN
Activity Restrictions/Additional Instructions:
Wound Care Instructions
R foot: Per Dr. Gomez- betadine impregnated gauze on sutures prior to application of vac, this is done to decrease maceration
vac-black foam to 125mmhg should be placed lateral wound M/W/F
R plantar foot: clean with saline, bactroban and dry gauze dressing change daily.
R foot non weight bearing
Follow up with Dr. Gomez
Referrals:
Bandar Gomez DPM [Specified Professional Personl, Podiatry] - in less than 1 week
Lisha Paige MD [Consulting Staff, Dermatology] - in two weeks
UNKNOWN - PT DOES,NOT KNOW [Unknown Provider]
Radha Oviedo MD [Active, Infectious Diseases] - in one month
Prescriptions:
New
Ertapenem [Invanz] 1000 MG
0.9% Sodium Chloride [Nss] 50 ML
120 mls/hr IV Q24H
Reason for use: Infection
Ordered By: Jose Ramon Dunbar MD, Resident
Last Taken: 03/03/25 12:08 60 mls
Continued
albuterol sulfate 1 PUFF HFA aerosol inhaler
2 puff inhalation R Q4HPRN PRN (Reason: shortness of breath)
montelukast 10 MG tablet
10 mg PO DAILY
insulin glargine [Lantus Solostar U-100 Insulin] 300 UNITS/3 ML insulin pen
45 units SC HS
insulin aspart U-100 [Novolog FlexPen U-100 Insulin] 300 UNITS/3 ML insulin pen
10 - 15 units SC MEALS
citalopram 40 mg Tablet
40 mg PO DAILY
fenofibrate
48 mg PO DAILY
lisinopril
30 mg PO DAILY
Discharge Orders:
Discharge Patient (As Directed); Ordered 03/03/25
Ordered By: Jose Ramon Scaramia
Discharge Date and Time
Discharge Date/Time: 03/03/25 17:19
Print Language: FAROESE

Documented by User: Bob Worrell MD 03/03/25 22:20
Discharge Summary
Discharge Data
Date of Admission: 02/23/25
Date of Discharge: 03/03/25
Discharge Plan
-
Patient Disposition: Home with Home Care
Discharge Diagnosis/Procedures: Cellulitis of right foot
Osteomyelitis fifth metatarsal head, proximal phalanx fifth toe, right foot
Osteomyelitis third metatarsal right foot
S/p excisional debridement, fifth metatarsal head resection, proximal phalanx base resection, bone biopsy third metatarsal
Pigmented papule-left areola
Condition: Good
Diet: Diabetic, Carb Controlled
Activity: Do not bear weight R leg
Additional Activity: None weightbearing right foot
Driving Restrictions: Not until seen by your Dr
Other Services: VN
Activity Restrictions/Additional Instructions:
Wound Care Instructions
R foot: Per Dr. Gomez- betadine impregnated gauze on sutures prior to application of vac, this is done to decrease maceration
vac-black foam to 125mmhg should be placed lateral wound M/W/F
R plantar foot: clean with saline, bactroban and dry gauze dressing change daily.
R foot non weight bearing
Follow up with Dr. Gomez
Referrals:
Bandar Gomez DPM [Specified Professional Personl, Podiatry] - in less than 1 week
Lisha Paige MD [Consulting Staff, Dermatology] - in two weeks
UNKNOWN - PT DOES,NOT KNOW [Unknown Provider]
Radha Oviedo MD [Active, Infectious Diseases] - in one month
Prescriptions:
New
Ertapenem [Invanz] 1000 MG
0.9% Sodium Chloride [Nss] 50 ML
120 mls/hr IV Q24H
Reason for use: Infection
Ordered By: Jose Ramon Dunbar MD, Resident
Last Taken: 03/03/25 12:08 60 mls
Continued
albuterol sulfate 1 PUFF HFA aerosol inhaler
2 puff inhalation R Q4HPRN PRN (Reason: shortness of breath)
montelukast 10 MG tablet
10 mg PO DAILY
insulin glargine [Lantus Solostar U-100 Insulin] 300 UNITS/3 ML insulin pen
45 units SC HS
insulin aspart U-100 [Novolog FlexPen U-100 Insulin] 300 UNITS/3 ML insulin pen
10 - 15 units SC MEALS
citalopram 40 mg Tablet
40 mg PO DAILY
fenofibrate
48 mg PO DAILY
lisinopril
30 mg PO DAILY
Discharge Orders:
Discharge Patient (As Directed); Ordered 03/03/25
Ordered By: Jose Ramon Dunbar
Discharge Date and Time
Discharge Date/Time: 03/03/25 17:19
Print Language: FAROESE
--- NOTE | 2025-03-03 18:51 | W.PN.HOSP.TC ---
Addendum entered and electronically signed by Bob Worrell MD 03/03/25 22:23:
Attending Addendum-
I saw and evaluated the patient. I reviewed the resident�s note and agree with findings and plan as documented in the resident�s note. Sub: Feels great. Wants to go home. Denies pain, fevers chills. Full 10 point ROS reviewed and negative except as
documented Exam: Vitals reviewed in chart GEN-NAD heart RRR lungs clear abd soft LE- Right incision CDI sutures in place wound vac in place RUE PICC in place
#Diabetic foot ulcers with osteomyelitis right 3rd/5th metatarsals and gas gangrene
#S/p right fifth MP joint resection/ excisional debridement/third metatarsal biopsy - 02/24 Dr Gomez
POD # 7
transitioned from cefepime to ertapenem -> 04/07 (6 weeks)
patient with definitive tx with surgery but will cont IV abx per pods due to pos bone bx - right 5th met head
ID on board�appreciate recs,
Partial weightbearing right foot
Continue wound VAC
PICC palced
#IDDM
#Diabetic neuropathy
#Diabetic retinopathy
Patient on carb controlled diet
Continue with home dose 45 Lantus
Continue SSI-increased to high resistance
Patient needs AC Julissa dose due to his fluctuating sugars, but patient refused to be started on AC aspart. He would like to continue with his home sliding scale.
[id number]
#Nevus
Newly diagnosed during this hospital stay
Near left areola
F/U with dermatology as outpatient
#Asthma
Not in acute exacerbation
Continue Singulair
Continue albuterol as needed
#Horseshoe kidney
Follow-up with nephrology as outpatient
trend BMP
#Essential hypertension-cont lisinopril
#Hyperlipidemia-cont fenofibrate
#Depression- cont citalopram
#DVT prophylaxis�Lovenox
Full code
Dispo DC home with VN
Time spent coordinating care, DC planning, review of DC plan of care with resident, transition of care, review of records, med rec/scripts sent electronically, consults, notes, d/w consultants, nursing, and CM� 33 mins >50% of this time was devoted
to counseling and coordination of care
Original Note:
Today's Communication/Plan
-
Discharge with PICC continue at home.
Wound Vac care at home.
follow up with PCP Dr Carmen Agee.
Assessment / Plan
Assessment / Plan
Assessment
54-year-old male with past medical history of IDDM, diabetic neuropathy/retinopathy, horseshoe kidney, asthma, former smoker and alcoholic presented to the ER with chronic right foot ulcers.
Plan
#Diabetic foot ulcers with osteomyelitis right 3rd/5th metatarsals and gas gangrene
#S/p right fifth MP joint resection/ excisional debridement/third metatarsal biopsy
POD # 7
AFVSS
CEFIPIME hcl 2000mg IV STOPPED, ERTAPENAM on Day 2.
Prelim bone culture positive with polymicrobial infection-Alcaligenes, Morganella, MSSA, group G strep.
Patient needs IV antibiotics at discharge for a total course of 6 weeks
Patient's insurance does not cover home IV antibiotics, need to be administered at outpatient infusion department
Partial weightbearing right foot
Continue wound VAC
Paln for the discharge today.
#IDDM
#Diabetic neuropathy
#Diabetic retinopathy
Patient on carb controlled diet
Continue with home dose 45 Lantus
Continue SSI-increased to high resistance
Patient needs AC Julissa dose due to his fluctuating sugars, but patient refused to be started on AC aspart. He would like to continue with his home sliding scale.
Glucose- 193mg/dl (On 03/03)
#Nevus
Newly diagnosed during this hospital stay
Near left areola
F/U with dermatology as outpatient
#Asthma
Not in acute exacerbation
Continue Singulair
Continue albuterol as needed
#Horseshoe kidney
Follow-up with nephrology as outpatient
Check BMP
#Essential hypertension
Continue lisinopril
#Hyperlipidemia
Continue fenofibrate
#DVT prophylaxis�Lovenox
Full code
Anticipated Discharge: Today
Subjective/Interval History
-
Date of Service: March 03, 2025
54 yrs male is stable, no complain for shortness of breath, dysuria, chest pain, palpitation.
Objective Data
-
Vital Signs:
Vital Signs
Temp Pulse Resp BP Pulse Ox
98.0 F 78 18 134/80 99
03/03/25 15:35 03/03/25 15:35 03/03/25 15:35 03/03/25 15:35 03/03/25 15:35
I&O
03/02/25 03/03/25 03/04/25
06:59 06:59 06:59
Intake Total 600 / 600 420 / 420
Balance 600 / 600 420 / 420
Review of Systems
-
History Source: Patient
All other systems: Reviewed and negative
Constitutional: Reports No Symptoms
EENT: Reports No Symptoms Reported
Respiratory: Reports No Symptoms
Cardiac: Reports No Symptoms
Abdomen/GI: Reports No Symptoms
Breast: Reports No Symptoms
Genitourinary: Reports No Symptoms
Musculoskeletal: Reports No Symptoms
Neuro: Reports No Symptoms
Endocrine: Reports No Symptoms
Hematologic / Lymphatic: Reports No Symptoms
Allergy / Immunology: Reports No Symptoms
Physical Exam
-
General: No Apparent Distress
Respiratory: Clear to Auscultation
Cardiac: Regular Rhythm
GI: Nontender
Musculoskeletal: No Clubbing and No Cyanosis
Skin: Warm
Neuro: Awake
Hematologic / Lymphatic: No Lymphadenopathy
== END 2025-03-03 17:19 | disposition home health service (06) | DRG 264 ==
LOC: 4 WEST ACU 21:09
PROVIDERS: Clinical Nurse Specialist Family Health; Emergency Medicine; Student in an Organized Health Care Education/Training Program; ADMITTING PHYSICIAN Internal Medicine; ATTENDING PHYSICIAN Family Medicine; CONSULT PHYSICIAN Internal Medicine Infectious Disease; CONSULT PHYSICIAN Podiatrist Foot Surgery; EMERGENCY PHYSICIAN Emergency Medicine; FAMILY PHYSICIAN Nurse Practitioner Family
PROC: 0QBN0ZX Excision of Right Metatarsal, Open Approach, Diagnostic (ICD-10-PCS; 2025-02-24)
PROC: 0QBN0ZZ Excision of Right Metatarsal, Open Approach (ICD-10-PCS; 2025-02-24)
PROC: 0JBQ0ZZ Excision of Right Foot Subcutaneous Tissue and Fascia, Open Approach (ICD-10-PCS; 2025-02-24)
DX: E11.52 Type 2 diabetes mellitus with diabetic peripheral angiopathy with gangrene (principal); L03.115 Cellulitis of right lower limb; M86.9 Osteomyelitis, unspecified; E11.621 Type 2 diabetes mellitus with foot ulcer; E11.628 Type 2 diabetes mellitus with other skin complications; Z87.891 Personal history of nicotine dependence; E11.42 Type 2 diabetes mellitus with diabetic polyneuropathy; Z79.4 Long term (current) use of insulin; F32.A Depression, unspecified; L97.519 Non-pressure chronic ulcer of other part of right foot with unspecified severity; Q63.1 Lobulated, fused and horseshoe kidney; I10 Essential (primary) hypertension; E78.5 Hyperlipidemia, unspecified
CPT/HCPCS: 88304; 88311; 71045; 73630; 80048; 80053; 82607; 82728; 82746; 82962; 83036; 83540; 83550; 83735; 85025; 85027; 87070; 87075; 87076; 87077; 87147; 87176; 87185; 87186; 87205; 93971; 94640; 97162; 97166; 97530; 99284; J1335

== ENCOUNTER → 2025-05-22 18:26 | Outpatient (REF) | payer BC, SELFPAY | LOC: CLAB 18:26 | PROVIDERS: ATTENDING PHYSICIAN Podiatrist Foot Surgery | DX: M86.671 Other chronic osteomyelitis, right ankle and foot (principal) | CPT/HCPCS: 87070; 87075; 87205 ==